=== PATIENT | female | born 1980 | race Caucasian/White ===

== ENCOUNTER 2018-05-09 00:23 | Observation (INO) | payer OTHER, SELFPAY ==
[2018-05-09] VITALS (19 sets, daily range): BP systolic 81–133; BP diastolic 48–76; PULSE 62–104; RESP 12–20; TEMP 36.5–37.2; O2SAT 93–100; BMI 25.0; BMI 25.3
--- NOTE | 2018-05-09 | APP_PTH ---
PATIENT: CLEOPATRA GUTIERREZ LOC: MS3 U#:[id number] AGE/SX: 37/F ROOM: MS312 RE05/09/[address]: Dr. Lokesh Erickson MD : 1980 BED: 1 DIS: 05/09/2018 SPEC #: [id number] RECD: 05/09/18 10:09 STATUS: MIRELLA REJimmy #: [id number] FRANSISCO: 05/09/18 00:[address]: Lokesh Erickson DEPT: SURGICAL PATHOLOGY RECD BY: Roe Hall ENTERED: 05/09/18 10:09 SP TYPE: APPENDIX OTHR DR: MD Dr. Keara Gonzalez MD Tissues: Appendix, NOS Procedures: Surgery Specimen Level III HEADER OPERATION: Laparoscopic appendectomy PRE-OP DIAGNOSIS: Acute appendicitis TISSUE SUBMITTED: Appendix MICROSCOPIC DIAGNOSIS Appendix: Acute appendicitis and periappendicitis. SJ:maría 05/13/18 MICROSCOPIC DESCRIPTION Slides are reviewed. GROSS DESCRIPTION Received is one container labeled with the patient's name and designated appendix. The specimen consists of a vermiform appendix measuring 7 cm in length and 1 cm in average diameter. Sections reveal a patent lumen. Fur Finisher Seamstress sections are submitted in one cassette. / AM:maría 05/09/18 TC:2 [facility]: [id number]
[2018-05-09 00:58] LABS: Bacteria 0 SEEN /hpf (None Seen); Red Blood Cells-Urine 0 SEEN /hpf (0-5); White Blood Cells 0 SEEN /hpf (0-5)
[2018-05-09] MEDS: 0.9% Normal Saline 1,000 ML 125 ML IV (00:58)
[2018-05-09 00:59] LABS: Color, Urine Yellow (Yellow); Glucose, Dipstick Normal (Normal); Leukocyte Esterase-Dipstick Negative /ul (Negative); Nitrite-Dipstick Negative (Negative); Occult Blood-Urine Negative /ul (Negative); Protein-Dipstick 15 mg/dl (Negative); Specific Gravity, Urine 1.025 (1.002-1.030); Urine Bilirubin Dipstick Negative (Negative); Urine Clarity Clear (Clear); Urine Urobilinogen Normal (Normal)
[2018-05-09] MEDS: Morphine 4 MG/ML Syringe IV (01:00)
[2018-05-09] MEDS: Ondansetron 4 MG/2 ML Vial IV ×2 (01:01→08:40)
[2018-05-09 01:03] LABS: Internal QC Validated? YES +Cl - CLEAR BKGD; Pregnancy, Urine Negative Negative
[2018-05-09 01:07] LABS: Ketone-Dipstick 150 mg/dl (Negative)
[2018-05-09 01:08] LABS: Mucous, Urine RARE /hpf (<or=2+); Squamous Epithelial Cells - UA 0-5 SEEN /hpf (5-10)
[2018-05-09 01:08] LABS: Absolute Lymphocyte Count 1.78 X10^3/ul (0.83-4.51); Absolute Neutrophil Count 10.4 X10^3/uL (2.0-7.7); Basophil# 0.02 X10^3/uL; Basophil% 0.1 % (0-1); Eosinophil# 0.16 X10^3/uL; Eosinophils% 1.2 % (0-5); Hematocrit 42.1 % (37-47); Hemoglobin 14.2 g/dl (12.0-15.0); Lymphocyte # 1.78 X10^3/ul (4.0); Lymphocyte % 13.3 % (19-41); Mean Corp Hgb Conc 33.7 g/gl (32-36); Mean Corpuscular Hgb 29.7 pg (27.0-32.0); Mean Corpuscular Volume 88.1 fL (81-99); Mean Platelet Vol. 9.2 fl (6.2-12.0); Monocyte# 0.99 X10^3/uL; Monocyte% 7.4 % (0-10); Neutrophil # 10.41 X10^3/uL (2.7-7.7); Neutrophil % 77.9 % (47-70); Platelet Count 251 K/mm3 (150-450); RBC Distribution Width CV 13.3 % (11.6-14.6); RBC Distribution Width SD 42.8 fl (35.1-43.9); Red Blood Count 4.78 M/mm3 (4.2-5.4); White Blood Count 13.4 K/mm3 (4.4-11.0)
[2018-05-09 01:10] LABS: POSITIVE COUNT NO; POSITIVE DIFFERENTIAL NO; POSITIVE MORPHOLOGY NO
[2018-05-09 01:17] LABS: Prothrombin Time (Protime)PT. 12.8 SECONDS (11.7-14.9)
[2018-05-09 01:18] LABS: Partial Thromboplast Time 29.5 Seconds (24.1-36.2)
[2018-05-09 01:23] LABS: ALB/GLOB Ratio 1.2 RATIO (0.9-2.4); AST(SGOT) 19 U/L (15-37); Alanine Aminotransfer ALT/SGPT 33 U/L (13-56); Albumin, Serum 3.7 g/dL (3.2-5.0); Alkaline Phosphatase 53 U/L (45-117); Anion Gap 11 (5-15); BUN 14 mg/dL (7-18); BUN/Creat Ratio 17.7 RATIO (10-20); Calcium,Total 8.2 mg/dL (8.5-10.1); Chloride 105 mmol/L (98-107); Creatinine, Serum 0.79 mg/dL (0.55-1.02); EST Glomerular Filtration Rate 88 mL/min (>60); Est Glom Filt Rate - Afr Amer 106 mL/min (>60); Estimated Creatinine Clearance 89.44 ml/min; Globulin 3.2 g/dL (2.2-4.2); Glucose 82 mg/dL (74-106); Lipase 129 U/L (73-393); Potassium 3.2 mmol/L (3.5-5.1); Protein, Total 6.9 g/dL (6.4-8.2); Sodium Level 139 mmol/L (136-145)
--- NOTE | 2018-05-09 03:17 | ED.VISSUMM ---
- ER Visit Summary Date of Service: 05/09/18 Chief Complaint: Abdominal pain History of Present Illness: The patient is a 37 F 2 day history waxing waning abdominal pain. Patient states pain is diffuse, intermittent sharpness. This evening at midnight symptoms got more severe. Severe chills on the way in here. Last menstrual period a week ago. Pain is 7 out of 10. No previous similar symptoms no abdominal surgeries. History of reflux on omeprazole, also takes vitamins. Last meal was at 5 PM yesterday. Physical Examination: General: Alert and oriented ?3, moderate distress HEENT: Normocephalic, atraumatic. Moist mucosa membranes Neck: supple, nontender. Cardiovascular: Regular rate and rhythm, no murmurs Respiratory: Normal breath sounds, symmetric, no distress Abdomen: Soft, mild generalized tenderness however most pain over right lower quadrant with mild guarding there. There is no rebound. Extremities: Nontender, no edema, pulses intact ?4 Neuro: no focal neurological deficits. Test Results: White count 13.4. Creatinine 0.79. Lipase normal. UA no ketones. HCG negative. CT scan discussion with radiologist notes acute appendicitis on report no possible microperforation with free fluid in the pelvis. Emergency Department Course and Treatment: Patient workup for appendicitis due to her symptoms. Kept n.p.o., fluid started. Morphine Zofran. Labs no white count 13.4. She did have a scan noting concerns for acute appendicitis possible microperforation due to free fluid. Discussed with on-call surgeon Dr. Erickson who will evaluate for surgery and admission Treatment Plan: [] Disposition: Admission Impression: 1. Acute appendicitis 2. Abdominal pain This note was generated with [email or web address] dictation software. It may contain incorrect words, spelling, and punctuation that were not noted in review of the chart prior to signing ED Disposition - Plan for ED Patient: Disposition: Acute Care [facility] Chief Complaint: Abd Pain Diagnosis: Acute appendicitis, Abdominal pain Referrals: Keara Flores MD [Primary Care Provider] -
--- NOTE | 2018-05-09 03:20 | ED.DCSUM_ITS ---
- ER Visit Summary Date of Service: 05/09/18 Chief Complaint: Abdominal pain History of Present Illness: The patient is a 37 F 2 day history waxing waning abdominal pain. Patient states pain is diffuse, intermittent sharpness. This evening at midnight symptoms got more severe. Severe chills on the way in here. Last menstrual period a week ago. Pain is 7 out of 10. No previous similar symptoms no abdominal surgeries. History of reflux on omeprazole, also takes vitamins. Last meal was at 5 PM yesterday. Physical Examination: General: Alert and oriented ?3, moderate distress HEENT: Normocephalic, atraumatic. Moist mucosa membranes Neck: supple, nontender. Cardiovascular: Regular rate and rhythm, no murmurs Respiratory: Normal breath sounds, symmetric, no distress Abdomen: Soft, mild generalized tenderness however most pain over right lower quadrant with mild guarding there. There is no rebound. Extremities: Nontender, no edema, pulses intact ?4 Neuro: no focal neurological deficits. Test Results: White count 13.4. Creatinine 0.79. Lipase normal. UA no ketones. HCG negative. CT scan discussion with radiologist notes acute appendicitis on report no possible microperforation with free fluid in the pelvis. Emergency Department Course and Treatment: Patient workup for appendicitis due to her symptoms. Kept n.p.o., fluid started. Morphine Zofran. Labs no white count 13.4. She did have a scan noting concerns for acute appendicitis possible microperforation due to free fluid. Discussed with on-call surgeon Dr. Erickson who will evaluate for surgery and admission Treatment Plan: [] Disposition: Admission Impression: 1. Acute appendicitis 2. Abdominal pain This note was generated with [employer] dictation software. It may contain incorrect words, spelling, and punctuation that were not noted in review of the chart prior to signing ED Disposition - Plan for ED Patient: Disposition: Acute Care Hospital [facility] Chief Complaint: Abd Pain Diagnosis: Acute appendicitis, Abdominal pain Referrals: Keara Flores MD [Primary Care Provider] -
[2018-05-09] MEDS: fentaNYL 100 MCG/2 ML Ampul 50 MCG IV (03:39)
--- NOTE | 2018-05-09 05:10 | PCM.HP.STD ---
Problem List (1) Acute appendicitis Status: Acute Qualifiers: Acute appendicitis type: with localized peritonitis Qualified Code(s): K35.3 - Acute appendicitis with localized peritonitis History of Present Illness Date of Admission: 05/09/18 The patient is a 37 year old F who has acute appendicitis.Patient states pain is diffuse, intermittent sharpness. This evening at midnight symptoms got more severe. Severe chills on the way in here. Last menstrual period a week ago. Pain is 7 out of 10. No previous similar symptoms no abdominal surgeries. History of reflux on omeprazole, also takes vitamins. Last meal was at 5 PM yesterday. CAT scan was obtained. Findings: MPRESSION: 1. CT findings suggest sequela of acute appendicitis. There may be a microperforation with a moderate amount of pelvic fluid. Abscess cannot be excluded. 2. Periportal edema suggests either sequela of hepatitis or overhydration. 3. Bilateral basilar dependent atelectasis versus early airspace disease. My plan is to take the patient to surgery and perform a laparoscopic appendectomy on her. Past Medical History Allergies No Known Allergies Allergy (Verified 05/09/18 00:27) Home Medications: Ambulatory Orders Medication Instructions Recorded Acyclovir 1,000 mg PO BID PRN 05/09/18 Surgical History: tonsillectomy, - - Breast augmentation Smoking Status: Former smoker - *Family History Paternal History Items: - - History of kidney stones history of incisional hernia repair Review of Systems Constitutional: Reports: Anorexia, Chills. Denies: Fever Cardiovascular: Denies: Chest Pain, Chest Pressure, Chest Tightness, Palpitations Respiratory: Denies: Cough, Hemoptysis, Shortness of breath at rest, Shortness of breath upon exertion, Wheezing Gastrointestinal: Reports: Abdominal Pain. Denies: Diarrhea, Nausea, Vomiting Genitourinary: Denies: Dysuria, Frequency, Hematuria, Urgency Neurological: Denies: Change in Speech, Confusion, Numbness, Tingling, Seizures Psychiatric: Denies: Anxiety, Depression Endocrine: Denies: Heat/ Cold Intolerance, Polydipsia, Polyuria VTE Information - Inpt Only VTE Present on Admission: No VTE Mechan Device Prophylaxis: SCD's VTE Pharm Prophylaxis ordered?: No Reason prophylaxis not ordered:: Treatment Not Indicated Patient Problems: Active and Suspected Problems Acute appendicitis (Acute) Abdominal pain (Acute) - Physical Exam General: Alert, Oriented x3 HEENT: Atraumatic, PERRLA, EOMI, Normocephalic Oral: Moist Mucosa Neck: Supple, No JVD Lungs: Clear to auscultation Cardiovascular: Regular rate, Regular Rhythm, No murmurs Abdomen: Soft, Guarding, Rebound Tenderness, Tender - Most tenderness is in the right lower quadrant positive Rovsing sign positive rebound Extremities: No clubbing, No cyanosis, No edema Skin: No rashes, No breakdown Neurological: Cranial nerves II-XII grossly intact Psych/Mental Status: Normal Affect, Appropriate Vital Signs Temp Pulse Resp BP Pulse Ox 98.5 F 73 19 H 133/66 H 100 05/09/18 05:03 05/09/18 05:03 05/09/18 05:03 05/09/18 05:03 05/09/18 05:03 Oxygen Delivery Method Room Air Weight: 150 lb Body Mass Index (BMI) 25.0 Laboratory Tests Past 24 Hrs 05/09/18 05/09/18 05/09/18 00:52 00:52 00:55 WBC 13.4 H RBC 4.78 Hgb 14.2 Hct 42.1 MCV 88.1 MCH 29.7 MCHC 33.7 RDW 13.3 RDW Differential 42.8 Plt Count 251 MPV 9.2 Immature Gran % (Auto) 0.100 Neut % (Auto) 77.9 H Lymph % (Auto) 13.3 L [place] % (Auto) 7.4 Eos % (Auto) 1.2 Baso % (Auto) 0.1 Absolute Neuts (auto) 10.4 H Absolute Lymphs (auto) 1.78 Total Counted Not Reportable PT INR APTT Sodium Potassium Chloride Carbon Dioxide Anion Gap BUN Creatinine Estim Creat Clear Calc Est GFR (MDRD) Af Amer Est GFR (MDRD) Non-Af BUN/Creatinine Ratio Glucose Calcium Total Bilirubin AST ALT Alkaline Phosphatase Total Protein Albumin Globulin Albumin/Globulin Ratio Lipase Urine Color Yellow Urine Clarity Clear Urine pH 5.0 Ur Specific [place] 1.025 Urine Protein 15 H Urine Glucose (UA) Normal Urine Ketones 150 H Urine Occult Blood Negative Urine Nitrite Negative Urine Bilirubin Negative Urine Urobilinogen Normal Ur Leukocyte Esterase Negative Urine RBC 0 SEEN Urine WBC 0 SEEN Ur Squamous Epith Cells 0-5 SEEN Urine Bacteria 0 SEEN Urine Mucus RARE Urine Test Negative Blood Type Antibody Screen 08/05/09/18 05/09/18 00:55 00:55 03:30 WBC RBC Hgb Hct MCV MCH MCHC RDW RDW Differential Plt Count MPV Immature Gran % (Auto) Neut % (Auto) Lymph % (Auto) [place] % (Auto) Eos % (Auto) Baso % (Auto) Absolute Neuts (auto) Absolute Lymphs (auto) Total Counted PT 12.8 INR 1.0 APTT 29.5 Sodium 139 Potassium 3.2 L Chloride 105 Carbon Dioxide 23.0 Anion Gap 11 BUN 14 Creatinine 0.79 Estim Creat Clear Calc 89.44 Est GFR (MDRD) Af Amer 106 Est GFR (MDRD) Non-Af 88 BUN/Creatinine Ratio 17.7 Glucose 82 Calcium 8.2 L Total Bilirubin 0.40 AST 19 ALT 33 Alkaline Phosphatase 53 Total Protein 6.9 Albumin 3.7 Globulin 3.2 Albumin/Globulin Ratio 1.2 Lipase 129 Urine Color Urine Clarity Urine pH Ur Specific [place] Urine Protein Urine Glucose (UA) Urine Ketones Urine Occult Blood Urine Nitrite Urine Bilirubin Urine Urobilinogen Ur Leukocyte Esterase Urine RBC Urine WBC Ur Squamous Epith Cells Urine Bacteria Urine Mucus Urine Test Blood Type Pending Antibody Screen Pending Assessment/Plan All Active Problems Acute appendicitis (Acute) Abdominal pain (Acute) Plan is to perform a laparoscopic appendectomy. Risks benefits to include bleeding infection possible injury to surrounding structures possible needing to leave a drain in were all discussed with the patient all questions asked were answered. She agrees to proceed.
--- NOTE | 2018-05-09 05:50 | NURSING ---
report called to ac
--- NOTE | 2018-05-09 06:15 | PCM.OPRPT ---
Problem List (1) Acute appendicitis Status: Acute Qualifiers: Acute appendicitis type: with localized peritonitis Qualified Code(s): K35.3 - Acute appendicitis with localized peritonitis Report of Operation Date of Procedure: 05/09/18 Pre-Operative Diagnosis: k35.3 acute appendicitis with localized peritonitis Post-Operative Diagnosis: Same Surgery/Procedure Performed:: Laparoscopic appendectomy Type of Anesthesia:: General Anesthesiologist: Polo Joyce Estimated Blood Loss (mL): < 25 cc - Admit VTE Documentation VTE Present on Admission: No VTE Mechan Device Prophylaxis: SCD's VTE Pharm Prophylaxis ordered?: No Reason prophylaxis not ordered:: Treatment Not Indicated
[2018-05-09] MEDS: Bupivacaine Mpf 0.5% 30 ML VIAL (06:41)
[2018-05-09] MEDS: Lactated Ringers 1,000 ML 75 ML IV ×2 (07:34→09:08)
[2018-05-09] MEDS: Lactated Ringers 1,000 ML 999 ML IV (09:08)
[2018-05-09] MEDS: Piperacil/Tazobactam 3.375 GM/50 ML ML IV (14:15)
[2018-05-09] MEDS: HYDROcodone Bitartrate/Apap 5/325 Tablet PO (16:17)
== END 2018-05-09 17:45 | disposition home or self-care (01) ==
LOC: ED 03:20 → MS3 05-13 09:17
PROVIDERS: Admitting Provider Surgery; Emergency Provider Emergency Medicine; Family Provider Internal Medicine; PCP Family Medicine; Visit Provider Surgery
PROC: 0DTJ4ZZ Resection of Appendix, Percutaneous Endoscopic Approach (ICD-10-PCS; CPT 44970; principal; 2018-05-09 06:00)
DX: K35.3 Acute appendicitis with localized peritonitis (principal); Z79.899 Other long term (current) drug therapy; Z87.891 Personal history of nicotine dependence; K21.9 Gastro-esophageal reflux disease without esophagitis
CPT/HCPCS: 00840; 44970; 71045; 74177; 80053; 81001; 81025; 83690; 85025; 85610; 85730; 86850; 86900; 88304; 93005; 96361; 96365; 96366; 96375; 96376; 99218; 99282; J7030; J7120; Q9967; A4216; C1760; G0378; J2405

== ENCOUNTER → 2018-10-17 15:01 | Outpatient (CLI) | payer OTHER, SELFPAY ==
[2018-10-17 17:19] LABS: Absolute Lymphocyte Count 2.73 X10^3/ul (0.83-4.51); Absolute Neutrophil Count 4.8 X10^3/uL (2.0-7.7); Basophil# 0.04 X10^3/uL; Basophil% 0.5 % (0-1); Eosinophil# 0.13 X10^3/uL; Eosinophils% 1.5 % (0-5); Hematocrit 41.8 % (37-47); Hemoglobin 13.8 g/dl (12.0-15.0); Lymphocyte # 2.73 X10^3/ul (4.0); Lymphocyte % 31.8 % (19-41); Mean Corpuscular Hgb 30.3 pg (27.0-32.0); Mean Corpuscular Volume 91.9 fL (81-99); Mean Platelet Vol. 10.4 fl (6.2-12.0); Monocyte# 0.84 X10^3/uL; Monocyte% 9.8 % (0-10); Neutrophil # 4.84 X10^3/uL (2.7-7.7); Neutrophil % 56.3 % (47-70); POSITIVE COUNT NO; POSITIVE DIFFERENTIAL NO; POSITIVE MORPHOLOGY NO; Platelet Count 330 K/mm3 (150-450); RBC Distribution Width CV 12.6 % (11.6-14.6); RBC Distribution Width SD 41.4 fl (35.1-43.9); Red Blood Count 4.55 M/mm3 (4.2-5.4); White Blood Count 8.6 K/mm3 (4.4-11.0)
[2018-10-17 17:37] LABS: ALB/GLOB Ratio 1.1 RATIO (0.9-2.4); AST(SGOT) 17 U/L (15-37); Alanine Aminotransfer ALT/SGPT 22 U/L (13-56); Albumin, Serum 3.9 g/dL (3.2-5.0); Alkaline Phosphatase 65 U/L (45-117); Anion Gap 11 (5-15); BUN 16 mg/dL (7-18); BUN/Creat Ratio 18.8 RATIO (10-20); Calcium,Total 8.4 mg/dL (8.5-10.1); Chloride 105 mmol/L (98-107); Creatinine, Serum 0.85 mg/dL (0.55-1.02); EST Glomerular Filtration Rate 80 mL/min (>60); Est Glom Filt Rate - Afr Amer 97 mL/min (>60); Globulin 3.4 g/dL (2.2-4.2); Glucose 75 mg/dL (74-106); Potassium 3.6 mmol/L (3.5-5.1); Protein, Total 7.3 g/dL (6.4-8.2); Sodium Level 142 mmol/L (136-145); Thyroid Stim Hormone (TSH) 1.17 uIU/mL (0.358-3.74)
[2018-10-17 18:57] LABS: Vitamin B12 529 pg/mL (211-911); Vitamin D,25 Hydroxy 16.1 ng/mL (29.95-100.01)
== END ==
PROVIDERS: Family Provider Family Medicine; PCP Family Medicine; Visit Provider Family Medicine
DX: R53.83 Other fatigue (principal); R19.7 Diarrhea, unspecified
CPT/HCPCS: 36415; 80053; 82306; 82607; 84443; 85025

== ENCOUNTER 2019-06-12 06:52 | Emergency (ER) | payer OTHER, SELFPAY ==
[2019-01-29 14:31] VITALS: BMI 26.6
[2019-06-12 06:52] VITALS: BP 116/78; PULSE 59; RESP 14; TEMP 36.6; O2SAT 99; BMI 29.1
--- NOTE | 2019-06-12 07:28 | EKG12_ITS ---
Test Reason : PALPITATIONS Blood Pressure : / mmHG Vent. Rate : 058 BPM Atrial Rate : 058 BPM P-R Int : 138 ms QRS Dur : 070 ms QT Int : 426 ms P-R-T Axes : 006 061 049 degrees QTc Int : 418 ms Sinus bradycardia Otherwise normal ECG Confirmed by LETTY PACE, CONTRERAS ([id number]), digital editor JOSH NORIEGA ([id number]) on 06/16/2019 10:17:47 AM Referred By: ALONA Confirmed By:CONTRERAS SAENZ MD
--- NOTE | 2019-06-12 07:29 | CT_ITS ---
STUDY: CT ABDOMEN AND PELVIS WITH CONTRAST REASON FOR EXAM: Female, 38 years old. Rectal bleeding. RADIATION DOSAGE (If Supplied By Facility): CTDIvol = ( 18.56 ) mGy, DLP = ( 1073.55 ) mGycm TECHNIQUE: Transaxial images were obtained from the dome of the diaphragm to the symphysis pubis with oral contrast. IV/Oral Isovue 300 100ml was administered. Sagittal and coronal images were reconstructed. Individualized dose optimization techniques were used for this CT. COMPARISON: Comparison is made with prior study dated May 09, 2018. FINDINGS: Stable appearance of the right breast prostheses. The visualized lung bases are unremarkable. The visualized portions of the heart are within normal limits. Stable appearance of the mild periportal edema. Normal gallbladder and extrahepatic biliary system. Normal spleen. Normal pancreas. Normal bilateral adrenal glands. Normal right kidney. Normal left kidney. Normal visualized stomach. Normal small intestine. Normal colon. Patient has a history of prior appendectomy. Normal abdominal aorta. Normal inferior vena cava. Normal retroperitoneum. Normal urinary bladder. There is a 2.9 cm x 3 cm septated cyst in the right ovary. Normal abdominal wall. Normal osseous structures. CT/Abdomen/Pelvis WITH Contrast IMPRESSION: Small septated cyst in the right ovary. Electronically Signed: Jayce Arshad, at 10:18 EDT , Service support ,
[2019-06-12 07:37] LABS: Absolute Lymphocyte Count 1.97 X10^3/uL (0.83-4.51); Absolute Neutrophil Count 4.2 X10^3/uL (2.0-7.7); Basophil# 0.07 X10^3/uL; Eosinophil# 0.19 X10^3/uL; Eosinophils% 2.6 % (0-5); Hematocrit 44.3 % (37-47); Hemoglobin 14.4 g/dL (12.0-15.0); Lymphocyte # 1.97 X10^3/ul (4.0); Lymphocyte % 27.1 % (19-41); Mean Corp Hgb Conc 32.5 g/dL (32-36); Mean Corpuscular Hgb 30.3 pg (27.0-32.0); Mean Corpuscular Volume 93.3 fL (81-99); Mean Platelet Vol. 9.3 fl (6.2-12.0); Monocyte# 0.81 X10^3/uL; Monocyte% 11.1 % (0-10); NRBC Flagged by Analyzer 0 % (0-5); Neutrophil # 4.21 X10^3/uL (2.7-7.7); Neutrophil % 57.9 % (47-70); Platelet Count 349 K/mm3 (150-450); RBC Distribution Width CV 11.9 % (11.6-14.6); Red Blood Count 4.75 M/mm3 (4.2-5.4); White Blood Count 7.3 K/mm3 (4.4-11.0)
[2019-06-12 07:41] VITALS: BP 112/80; BP 120/88; BP 121/88; PULSE 62; PULSE 64; PULSE 67
[2019-06-12 07:41] LABS: International Normalized Ratio 1.1; Partial Thromboplast Time 29.6 Seconds (24.1-36.2); Prothrombin Time (Protime)PT. 13.6 SECONDS (11.7-14.9)
[2019-06-12] MEDS: 0.9% Normal Saline 1,000 ML 1000 ML IV (07:42)
[2019-06-12 07:50] LABS: ALB/GLOB Ratio 1.2 RATIO (0.9-2.4); AST(SGOT) 15 U/L (15-37); Alanine Aminotransfer ALT/SGPT 16 U/L (13-56); Albumin, Serum 3.8 g/dL (3.2-5.0); Alkaline Phosphatase 65 U/L (45-117); Anion Gap 4 (5-15); BUN 13 mg/dL (7-18); BUN/Creat Ratio 18.9 RATIO (10-20); Calcium,Total 8.5 mg/dL (8.5-10.1); Chloride 108 mmol/L (98-107); Creatinine, Serum 0.69 mg/dL (0.55-1.02); EST Glomerular Filtration Rate 102 mL/min (>60); Est Glom Filt Rate - Afr Amer 124 mL/min (>60); Estimated Creatinine Clearance 101.43 ml/min; Globulin 3.2 g/dL (2.2-4.2); Glucose 74 mg/dL (74-106); Potassium 4.1 mmol/L (3.5-5.1); Sodium Level 142 mmol/L (136-145)
--- NOTE | 2019-06-12 08:28 | ED.DCSUM_ITS ---
- ER Visit Summary Date of Service: 06/12/19 Chief Complaint: Palpitations History of Present Illness: The patient is a 38 F who presents with palpitations that have been intermittent over the past 2 days. Patient states she feels like her heart is skipping at times. Patient states these episodes last for approximately 20 seconds. Patient denies any chest pain. Patient denies any shortness of breath. Patient denies any nausea or vomiting. Patient denies any diaphoresis. Patient also states she has noted some blood in her stool this morning. Patient states her stools have been loose over the past few days. Patient states she has increased gas after eating. Patient denies any abdominal pain. Patient denies any dysuria or hematuria. She denies any pain with bowel movement. Physical Examination: Vital signs are stable. Patient is afebrile. Patient is in no acute distress. Oral mucosa is pink and moist. Neck is supple. Trachea is midline. There is no JVD noted. Heart was regular rate and rhythm. Lungs are clear and equal bilaterally. Abdomen is soft. Bowel sounds are normal. There is no tenderness. Cranial nerves II through XII are intact. There are no focal motor or sensory deficits noted. Test Results: EKG showed sinus rhythm with a rate of 58. There are no acute ST or T wave changes. There are no PACs or PVCs. DC and comprehensive metabolic profile within normal limits. PT with INR and PTT were normal. Urinalysis does not show any evidence of urinary tract infection. PA and lateral chest x-ray does not show any acute cardiopulmonary process. CT scan of the abdomen pelvis was obtained. There is a right ovarian cyst. There is no acute intra-abdominal abnormality. Emergency Department Course and Treatment: Patient was feeling better on reevaluation. Patient was instructed to follow-up with her primary care physician for further evaluation of her palpitations. Patient was instructed to continue to watch her stools for bleeding. Patient was instructed on signs and symptoms which should prompt return to the emergency department. Patient and her understood and were agreeable with the plan. All questions were answered. Disposition: Discharge home Impression: 1. Palpitations 2. Rectal bleeding This note was generated with Single [employer] software. It may contain incorrect words, spelling, and punctuation that were not noted in review of the chart prior to signing ED Disposition - Plan for ED Patient: Disposition: Home or Assisted Living Diagnosis: Palpitations, Rectal bleeding Instructions: Palpitations, Evaluating and Treating Rectal Bleeding Referrals: Keara Flores MD [Primary Care Provider] - 3-5 Days
[2019-06-12 09:15] VITALS: BP 120/90; PULSE 59; RESP 18; O2SAT 99
[2019-06-12 09:27] LABS: Bacteria 0 SEEN /hpf (None Seen); Mucous, Urine 0 SEEN /hpf (<or=2+); Red Blood Cells-Urine 0 SEEN /hpf (0-5); White Blood Cells 0 SEEN /hpf (0-5)
[2019-06-12 09:29] LABS: Color, Urine Yellow (Yellow); Glucose, Dipstick Normal (Normal); Ketone-Dipstick Negative (Negative); Leukocyte Esterase-Dipstick Negative /ul (Negative); Nitrite-Dipstick Negative (Negative); Occult Blood-Urine Negative /ul (Negative); Protein-Dipstick Negative (Negative); Specific Gravity, Urine 1.005 (1.002-1.030); Urine Bilirubin Dipstick Negative (Negative); Urine Clarity Clear (Clear); Urine Urobilinogen Normal (Normal)
[2019-06-12 09:44] LABS: Squamous Epithelial Cells - UA 0-5 SEEN /hpf (5-10)
--- NOTE | 2019-06-12 09:45 | RAD_ITS ---
STUDY: X-RAY CHEST REASON FOR EXAM: Female, 38 years old. Cough. Palpitations. TECHNIQUE: PA and lateral views of the chest. Comparison is made with prior study dated May 09, 2018. COMPARISON: Comparison is made with prior study dated May 09, 2018. FINDINGS: EKG electrodes are seen. The lungs are clear and expanded. There is no demonstrated pleural abnormality. Normal size heart. Normal mediastinum and essence. Normal visualized pulmonary arteries. Normal visualized aortic arch and descending thoracic aorta. Normal visualized thoracic spine. Normal visualized ribs, clavicles, and shoulders. There is no demonstrated abnormality of the visualized soft tissue structures of the upper abdomen. RAD/Chest PA and Lateral IMPRESSION: Normal x-ray examination of the chest. Electronically Signed: Jayce Arshad, at 10:20 EDT , Service support ,
[2019-06-12 11:00] VITALS: BP 121/79; PULSE 64; RESP 18; O2SAT 99
== END 2019-06-12 11:01 | disposition home or self-care (01) ==
PROVIDERS: Emergency Provider Emergency Medicine; Family Provider Family Medicine; PCP Family Medicine
DX: R00.2 Palpitations (principal); K62.5 Hemorrhage of anus and rectum; N83.201 Unspecified ovarian cyst, right side; Z87.891 Personal history of nicotine dependence
CPT/HCPCS: 71046; 74177; 80053; 81001; 85025; 85610; 85730; 93005; 96360; 99285; J7030; Q9967; A4216

== ENCOUNTER 2019-07-13 09:13 | Day surgery (SDC) | payer OTHER, SELFPAY ==
--- NOTE | 2019-06-24 03:14 | HP_ITS ---
Intake Vital Signs 06/24/19 Body Mass Index (BMI) 29.1 06/24/19 Height 5 ft 5 in 06/24/19 Weight: 170 lb 06/24/19 Body Mass Index (BMI) 28.3 06/24/19 Blood Pressure 113/77 06/24/19 Blood Pressure Location Rt brachial 06/24/19 Respiratory Rate 16 06/24/19 Pulse Rate 73 06/24/19 Pulse Source Monitor 06/24/19 Temperature 98.5 F 06/24/19 Pulse Ox 98 06/24/19 Oxygen Delivery Method room air Intake Visit Reasons: Rectal Bleeding/Change in Stool Horse Doctor Required: No Is patient in pain?: No Allergies omeprazole Allergy (Unknown, Verified 06/24/19 14:59) Unknown Medications acyclovir 400 mg tablet 400 mg PO BID PRN 06/24/19 [History Confirmed 06/24/19] acyclovir 5 % topical cream 1 applic TOPICAL ONCE PRN 06/24/19 [History Confirmed 06/24/19] diazepam 5 mg tablet 5 mg PO DAILY PRN #20 tab 06/24/19 [History Confirmed 06/24/19] ranitidine 150 mg tablet PO #60 tab 06/24/19 [History] valacyclovir 1 gram tablet 1,000 mg PO DAILY PRN #20 tab 06/24/19 [History Confirmed 06/24/19] PFSH Medical History Blood in stool (Acute) Diarrhea (Acute) Anal fissure (Acute) Anxiety (Acute) Laceration of right thumb (Acute) Acute appendicitis (Acute) Abdominal pain (Acute) Surgical History Hx of breast augmentation (Acute) Hx of tonsillectomy (Acute) Hx of appendectomy (Acute) Family History Mother No problems noted. Social History (Updated 06/24/19 @ 15:14 by Kathy Zazueta MD) Smoking Status: Former smoker second hand exposure: No alcohol intake: current alcohol intake frequency: holidays/special occasions only substance use type: does not use caffeine: Yes what type of physical activity do you participate in: none frequency: does not exercise HPI HPI HPI: CLEOPATRA GUTIERREZ, is a 38 F who presents to the office today for HPI HPI Surgical H&P: Yes HPI: CLEOPATRA GUTIERREZ, is a 38 F who presents to the office today for change of stool caliber and habits. Patient states over the last 8 months she has had mostly non-formed stool can range from liquid to thin pieces of stool. Patient states she now also goes 3 times a day to the restroom prior to this she usually only had a bowel movement once every 3 weeks. Patient has noticed blood in her stool twice once was on 06/12 and then 06/16. Patient states to between bright red and maroon stool but difficult to see because of the stool but does change the water to read again only a smaller amount. Patient also notices some small amount of bright red blood on the toilet paper due to her anal fissure. Patient states that her bowel movements have been soft and she has not needed any stool softeners. She thinks the fissure started about 4 to 6 months ago she rates her pain at 3?410 which has stayed the same when she has bowel movement. Patient states recently she is also had a lot more gas. Patient denies really any change of diet with this change of bowel function. Patient is adopted unsure about any family history. Patient has never had a colonoscopy. Exam Const General: cooperative, comfortable, no acute distress Resp Effort & Inspection: normal respiratory effort Cardio Rate: regular rate GI Inspection: non-distended Palpation: soft, no guarding, nontender Other: DREW: Anal fissure at 6:00, no other masses or obvious hemorrhoids noted on exam, no gross blood Assessment & Plan Problems 1. Change in stool caliber R19.5 2. Blood in stool K92.1 3. Anal fissure K60.2 Plan We will give the patient diltiazem/lidocaine ointment to use 2-3 times daily for the anal fissure also recommended sitz bath's. I have discussed the above with the patient. I have offered the patient colonoscopy for evaluation. I have explained the risks/benefits of the procedure and described the procedure. I have discussed the risks with the patient, including but not limited to: infection, bleeding, perforation of the GI tract requiring emergency surgery, inability to complete the procedure, injury to any internal organs, complications of anesthesia, etc. - the patient understands and agrees to proceed. I have answered all the patient's questions to the patient's satisfaction and the patient has no further questions. The patient has been given instructions for the colon cleansing preparation. One day of clears, MiraLAX Dulcolax split prep. Kathy Zazueta M.D. Pager: [phone] [facility] [address] [place] [address], [facility], [address] [place] [address] Office: [phone] Medications New: diazepam 5 mg PO DAILY PRN ranitidine PO valacyclovir 1,000 mg PO DAILY PRN acyclovir 400 mg PO BID PRN acyclovir 5% (Zovirax) 1 applic topical ONCE PRN Plan Detail Follow Up We will schedule colonoscopy Coding Level of Care Code Off vis,est,level 3 Diagnoses Change in stool caliber R19.5 Blood in stool K92.1 Anal fissure K60.2 06/24/19 [id number] <Electronically signed by Kathy Umanzor am, MD> Date _ Kathy Zazueta MD I have examined the patient the following changes are noted: Patient denies any more blood per rectum however is still having pain with bowel movements patient has been using the diltiazem/lidocaine cream however she has not been doing sitz bath. Did encourage patient to do the sitz bath's a couple times a day. Patient states her bowel movements are still no change in caliber depends on the day.
[2019-06-24 14:55] VITALS: BMI 29.1
[2019-07-13] VITALS (7 sets, daily range): BP systolic 95–114; BP diastolic 55–76; PULSE 66–82; RESP 16; TEMP 36.3–36.9; O2SAT 99–100
[2019-07-13] MEDS: Lactated Ringers 1,000 ML 100 ML IV (10:14)
--- NOTE | 2019-07-13 10:30 | COLBX_PTH ---
PATIENT: CLEOPATRA GUTIERREZ LOC: EN U#:[id number] AGE/SX: 38/F ROOM: RE07/13/[address]: Dr. Kathy Zazueta MD : 1980 BED: DIS: 07/13/2019 SPEC #: [id number] RECD: 07/13/19 11:24 STATUS: MIRELLA KENNETH #: [id number] FRANSISCO: 07/13/19 10:[address]: Kathy Zazueta DEPT: SURGICAL PATHOLOGY RECD BY: [place] ENTERED: 07/13/19 11:26 SP TYPE: COLON BX OTHR DR: Dr. Keara Flores MD Tissues: Descending colon Procedures: Surgery Specimen Level IV HEADER OPERATION: Colonoscopy (MAC) PRE-OP DIAGNOSIS: Rectal bleed, change in stool TISSUE SUBMITTED: Biopsy of descending colon polyp MICROSCOPIC DIAGNOSIS Descending colon polyp, biopsy: Fragments of colonic mucosa with minimal hyperplastic changes. SJ:maría 07/14/19 MICROSCOPIC DESCRIPTION Slides are reviewed. GROSS DESCRIPTION Received in fixative is one container labeled with the patient's name and designated biopsy of descending colon polyp. The specimen consists of two irregular fragments of light choi soft tissue that in aggregate measure 0.4 x 0.2 x 0.1 cm. The specimen is totally submitted in one cassette. / ROMELIA:maría 07/13/19 TC:5 CPT: 93458
[2019-07-13 10:43] LABS: Internal QC Validated? YES +Cl - CLEAR BKGD; Pregnancy, Serum, hCG Quali. NEGATIVE Negative
--- NOTE | 2019-07-13 11:13 | OP.ENDO_ITS ---
07/13/2019 Keara Flores [place] [id number] [place] [address] Re : Colonoscopy procedure for Jennifer Bagley Dear Dr. Flores This procedure was performed on Saturday, July 13, 2019. My impressions and recommendations are as follows: Impressions : - Hemorrhoids found on perianal exam. - Anal fissure found on perianal exam. - One less than 5 mm polyp in the descending colon, removed with a cold biopsy forceps. Resected and retrieved. - The examination was otherwise normal. Recommendations : - Discharge patient to home. - Resume previous diet. - Continue present medications. - Await pathology results. - Repeat colonoscopy in 5-10 years for surveillance based on pathology results. My findings are described in the full procedure note, which is enclosed. If I can be of further assistance, please feel free to contact me at Doctor phone number(s): , Work: . Sincerely, MD Kathy Vaca MD 07/13/2019 11:13:02 AM This report has been signed electronically.
== END 2019-07-13 11:51 | disposition home or self-care (01) ==
LOC: EN 09:13 → AC 09:32
PROVIDERS: Anesthesiology; Family Provider Family Medicine; PCP Family Medicine; Referring Provider Family Medicine; Visit Provider Surgery
PROC: 0DJD8ZZ Inspection of Lower Intestinal Tract, Via Natural or Artificial Opening Endoscopic (ICD-10-PCS; CPT 45378; principal; 2019-07-13 10:25)
DX: K62.5 Hemorrhage of anus and rectum (principal); K60.2 Anal fissure, unspecified; D12.4 Benign neoplasm of descending colon; K64.9 Unspecified hemorrhoids; Z87.891 Personal history of nicotine dependence; F41.9 Anxiety disorder, unspecified
CPT/HCPCS: 45380; 84703; 88305; J7120; J2405

== ENCOUNTER → 2020-04-05 09:28 | Outpatient (CLI) | payer OTHER, SELFPAY | PROVIDERS: PCP Family Medicine; Referring Provider Family Medicine; Visit Provider Family Medicine | DX: Z20.828 Contact with and (suspected) exposure to other viral communicable diseases (principal) | CPT/HCPCS: 87635; 94799; U0003 ==

== ENCOUNTER → 2023-03-18 | Outpatient (CLI) | payer OTHER, SELFPAY | END | disposition home or self-care (01) | LOC: LABSPEC 10:26 | PROVIDERS: PCP Family Medicine; Referring Provider Family Medicine; Visit Provider Family Medicine | DX: N39.0 Urinary tract infection, site not specified (principal) | CPT/HCPCS: 87086; 87088; 87186 ==

== ENCOUNTER → 2023-09-17 | Outpatient (CLI) | payer OTHER, SELFPAY ==
--- NOTE | 2023-09-17 14:22 | RAD_ITS ---
INDICATION: Left lower quadrant pain EXAMINATION/TECHNIQUE: X-RAY - XR Abdomen 1 View COMPARISON: No relevant prior comparison study available FINDINGS: BOWEL GAS PATTERN: Non-obstructive. No bowel or stomach distention. FREE AIR: Not assessed on a single supine view. ORGANOMEGALY: Not seen. CALCIFICATIONS: Few pelvic calcifications likely due to phleboliths. LOWER CHEST: No acute pathology. BONES AND SOFT TISSUES: No acute pathology. RAD/Abdomen Single View IMPRESSION: Non-obstructive bowel gas pattern. Electronically Signed: Balaji Hamilton MD at 14:41 EST ,
[2023-09-17 15:22] LABS: Erythrocyte Sedimentation Rate < 1 mm/hr (0-30)
--- OUTSIDE RECORDS SUMMARY | 2023-09-17 15:22 | XMS RPT_ITS | CCD ---
Author Name Unknown Address [address] [place] [address] Organization [facility] Care Team Providers Care Professor Of [employer] Name Role Phone TANIA CARREON) Unavailable Unav ailable Problems Problem Classification Problem Date Documented Da te Episodic/Chronic Unclassified (1 source) Unknown / UNK(Unknown) Onset: 08-13-2017 Results Test Name Value Interpretation Reference Range Facil ity Encounters Encounter Date Encounter Type Care Provider Facility Start: 08-13-2017 End: 08-16-2017 Ambulatory TANIA RODRIGUEZ) VELMA De La Cruz [facility] Summary Purpose Family History No Family History Records Found Advance Directives No Advanced Directives Records Found Additional Source Comments INFORMATION SOURCE (unrecogn ized section and content) FOR RECORDS PERTAINING TO PATIENTS WHO ARE OR HAVE BEEN ENROLLED IN A CHEMICAL DEPENDENCY/SUBSTANCEABUSE PROGRAM, SOME INFORMATION MAY BE OMITTED. This clinical summary was aggregated from multiple sources. Caution should be exercised in using it in the provision of clinical care. This summary normalizes information from multiple sources, and as a consequence, information in this document may materially change the coding, format and clinical context of patient data. In addition, data may be omitted in some cases. CLINICAL DECISIONS SHOULD BE BASED ON THE PRIMARY CLINICAL RECORDS. [employer] provides no warranty or guarantee of the accuracy or completeness of information in this document.
[2023-09-17 15:25] LABS: Absolute Lymphocyte Count 2.05 X10^3/uL (0.83-4.51); Absolute Neutrophil Count 5.3 X10^3/uL (2.0-7.7); Basophil# 0.06 X10^3/uL; Basophil% 0.7 % (0-1); Eosinophil# 0.01 X10^3/uL; Eosinophils% 0.1 % (0-5); Hematocrit 40.9 % (37-47); Hemoglobin 14.2 g/dL (12.0-15.0); Lymphocyte # 2.05 X10^3/ul (0.83-4.51); Lymphocyte % 24.7 % (19-41); Mean Corp Hgb Conc 34.7 g/dL (32-36); Mean Corpuscular Hgb 31.1 pg (27.0-32.0); Mean Corpuscular Volume 89.7 fL (81-99); Monocyte# 0.86 X10^3/uL; Monocyte% 10.3 % (0-10); NRBC Flagged by Analyzer 0 % (0-5); Neutrophil # 5.31 X10^3/uL (2.7-7.7); Platelet Count 424 K/mm3 (150-450); RBC Distribution Width CV 12.1 % (11.6-14.6); RBC Distribution Width SD 39.8 fl (35.1-43.9); Red Blood Count 4.56 M/mm3 (4.2-5.4); White Blood Count 8.3 K/mm3 (4.4-11.0)
[2023-09-17 15:37] LABS: CRP < 2.90 mg/L (0.0-3.0)
== END | disposition home or self-care (01) ==
LOC: BFHLAB 13:36
PROVIDERS: PCP Nurse Practitioner Family; Visit Provider Nurse Practitioner Family
DX: R10.32 Left lower quadrant pain (principal)
CPT/HCPCS: 36415; 74018; 85025; 85652; 86140

== ENCOUNTER → 2024-01-31 | Outpatient (CLI) | payer OTHER, SELFPAY | END | disposition home or self-care (01) | LOC: BFHLAB 16:15 | PROVIDERS: PCP Nurse Practitioner Family; Referring Provider Nurse Practitioner Family; Visit Provider Nurse Practitioner Family | DX: N39.0 Urinary tract infection, site not specified (principal) | CPT/HCPCS: 87077; 87086; 87088; 87186 ==

== ENCOUNTER → 2024-02-13 | Outpatient (CLI) | payer OTHER, SELFPAY ==
[2024-02-19 14:10] LABS: HPV APTIMA, High Risk Negative (Negative)
== END | disposition home or self-care (01) ==
PROVIDERS: PCP Nurse Practitioner Family; Referring Provider Nurse Practitioner Family; Visit Provider Nurse Practitioner Family
DX: Z12.4 Encounter for screening for malignant neoplasm of cervix (principal)
CPT/HCPCS: 87624; 88175; G0145

== ENCOUNTER → 2024-12-24 | Outpatient (CLI) | payer OTHER, SELFPAY | END | disposition home or self-care (01) | LOC: LABSPEC 14:35 | PROVIDERS: PCP Family Medicine; Visit Provider Family Medicine | DX: R30.0 Dysuria (principal) | CPT/HCPCS: 87086; 87088; 87186 ==

== ENCOUNTER → 2025-01-18 | Outpatient (CLI) | payer OTHER, SELFPAY ==
--- NOTE | 2025-01-18 13:55 | BI_ITS ---
EXAM: DIAG MAMM W/CAD, BILAT 01/18/2025 CLINICAL HISTORY: F, Age 44 y/o , RIGHT BREAST MASS palpable mass. Evaluate. Patient has bilateral breast implants. TECHNIQUE: Bilateral Diagnostic digital breast tomosynthesis with 2D and 3D images. Computer aided detection. COMPARISON: Images. Prior exam(s) dated none. FINDINGS: TISSUE DENSITY: The breast tissue is extremely dense which lowers the sensitivity of mammography. Bilateral Breast Mammographic Findings: A radiopaque marker is placed over the right breast palpable abnormality. There is a 1 cm partially obscured isodense mass seen in this location. It is best appreciated on the marion images. Further workup with ultrasound will be performed. There is a 2.5 cm partially obscured isodense mass in the retroareolar region, slightly medial aspect of the right breast. Further workup with ultrasound will be performed. There is a 2 cm partially obscured masslike density seen in the superior outer aspect of the right breast. This is best appreciated on the marion images. Further workup with ultrasound will be performed. No suspicious masses, suspicious clustered microcalcifications, architectural distortion or secondary signs of malignancy is identified in the left breast. Both breast implants appear to be intact. BI/DIAG MAMM W/CAD, BILAT IMPRESSION: OVERALL FINAL ASSESSMENT: BIRADS 0 Incomplete: Need additional imaging evaluati on and/or prior mammograms for comparison.. RECOMMENDATION: Ultrasound. A letter with findings and recommendations will be mailed to the patient. Reading Location: [id number]
--- NOTE | 2025-01-18 13:55 | US_ITS ---
PROCEDURE: BREAST LIMITED UNILATERAL 01/18/2025 REASON FOR EXAM: RIGHT BREAST MASS Palpable mass right breast. Inconclusive mammogram shows 3 masses in the right breast. 1 of which does correlate to the palpable abnormality. Further workup with ultrasound will be performed. TECHNIQUE: Targeted left breast ultrasound. COMPARISON: Mammogram dated 01/18/2025 FINDINGS: Left breast ultrasound was targeted to the masses seen on the mammogram study as well as the palpable abnormality.. There is a benign-appearing cyst identified in the retroareolar region of the right breast correlating to a mass on the mammogram. This cyst is located at the retroareolar region measuring 2.4 x 2.3 x 1.5 cm. Aspiration is recommended. There are 2 solid hypoechoic lobulated masses seen in the right breast. These do correlate to masses seen on the mammogram. 1 of which does correlate to the palpable abnormality. The masses do have blood flow. The masses do not appear to be highly worrisome for malignancy however malignancy can not be entirely excluded. Biopsy of both masses is warranted. US/Breast Limited Unilateral IMPRESSION: Impression: The 2 solid masses in the right breast warrant biopsy in order to c ompletely exclude a malignancy. The cyst should be aspirated. Birads: BI-RADS 4: SUSPICIOUS ABNORMALITY. Reading Location: [id number]
== END | disposition home or self-care (01) ==
LOC: OPBI 13:53
PROVIDERS: PCP Family Medicine; Referring Provider Nurse Practitioner Women's Health; Visit Provider Nurse Practitioner Women's Health
DX: N63.10 Unspecified lump in the right breast, unspecified quadrant (principal)
CPT/HCPCS: 76642; 77062; 77066; G0279

== ENCOUNTER 2025-01-22 21:19 | Outpatient (CLI) | payer OTHER, SELFPAY ==
--- NOTE | 2025-01-22 15:00 | BRBX_PTH ---
PATIENT: CLEOPATRA GUTIERREZ LOC: [facility] U#:[id number] AGE/SX: 44/F ROOM: RE01/22/[address]: Dr. Kathy Zazueta MD : 1980 BED: DIS: 01/22/2025 SPEC #: [id number] RECD: 01/22/25 16:00 STATUS: MIRELLA KENNETH #: [id number] FRANSISCO: 01/22/25 15:[address]: Kathy Zazueta DEPT: SURGICAL PATHOLOGY RECD BY: Kathy Jasso ENTERED: 01/25/25 07:24 SP TYPE: BREAST BX OTHR DR: Dr. Keara Flores MD Tissues: A - Right breast, NOS B - Right breast, NOS Procedures: Immunohistochemical Stains Surgery Specimen Level IV IHC Stain ADDITIONAL HEADER OPERATION: Right breast biopsy PRE-OP DIAGNOSIS: Right breast TISSUE SUBMITTED: A- Right breast mass tissue, 6o'clock, 4cm from nipple, B- Right breast mass tissue, 11o'clock, 3cm from nipple Ischemic Time: <1 minute Fixation Time: 77 hours MICROSCOPIC DIAGNOSIS A. Right breast, mass, 6:00, 4 cm from nipple, biopsy: * Benign breast tissue. B. Right breast, mass, 11:00, 3 cm from nipple, biopsy: * Benign breast tissue - see note. * Note: IHC for CK5/6 and p40 support the histologic impression. MICROSCOPIC DESCRIPTION Slides are reviewed. All matched controls reacted appropriately. These tests were developed and their performance characteristics determined by [facility]. They may not have been cleared or approved by the U.S. Food and Drug Administration. The FDA has determined that such clearance or approval is not necessary.? The above immunohistochemical/dualISH?markers are ordered and reviewed by the Pathologist. GROSS DESCRIPTION A. Received in formalin in a container labeled with the patient's name, date of , and breast mass tissue 6:00 are approximately 2 choi-yellow core biopsies of fibrofatty tissue measuring 0.6 x 0.2 cm and 1.0 x 0.2 cm. Submitted in toto in A1. B. Received in formalin in a container labeled with the patient's name, date of , and breast mass tissue 11:00 are multiple choi-yellow fragments of fibrofatty tissue measuring 1.2 x 0.5 x 0.3 cm in aggregate. Submitted in toto in B1. [facility] 01-25-2025 CPT:19511f1,[id number]
== END 2025-01-22 23:59 | disposition home or self-care (01) ==
LOC: LABSPEC 21:20
PROVIDERS: PCP Family Medicine; Visit Provider Surgery
DX: N63.10 Unspecified lump in the right breast, unspecified quadrant (principal)
CPT/HCPCS: 88305; 88341; 88342

== ENCOUNTER → 2025-08-11 | Outpatient (CLI) | payer OTHER, SELFPAY ==
--- NOTE | 2025-08-11 13:22 | US_ITS ---
PROCEDURE: BREAST LIMITED UNILATERAL 08/11/2025 REASON FOR EXAM: F, Age 44 y/o , 6 MONTH F/U COMPARISON: Prior study dated January 18, 2025.. TECHNIQUE: Procedure Code: USBRSTLIMIT Modality: US Procedure: BREAST LIMITED UNILATERAL. The periareolar region of the right breast was examined with ultrasound. FINDINGS: The previously seen retroareolar simple cyst is not seen at this time. Essentially stable hypoechoic lobulated structure at the 11 o'clock position of the breast at 3 cm from the nipple. Stable 5 mm x 6 mm x 4 mm hypoechoic nodule at the 6 o'clock position of the breast at 4 cm from the nipple. Tissue clip markers from prior biopsy seen. US/Breast Limited Unilateral IMPRESSION: Status post right breast biopsy. These are unchanged. The previously seen retroareolar cyst in the right breast is not seen at this t ken. BI-RADS 2: BENIGN RECOMMENDATION: Routine annual follow-up in 1 Year Reading Location: [facility]
--- OUTSIDE RECORDS SUMMARY | 2025-08-11 14:55 | XMS RPT_ITS | CCD ---
Author Organization [facility] Care Team Providers Care Chain Carrier Name Role Phone MARIA ELENA CRAWFORD Attending Unavailable KEARA FLORES Primary Care Unavailabl e HASSANI, NALDO B Attending Unavailable MARIA ELENA CRAWFORD Referring Unavailable KEARA FLORES Primary Care Unavaillydia Flores MD, Keara Manzanares Primary Care Provider HASSANI, NALDO B Admitting Unavailable HASSNELLY, NALDO B Attending Unavailable KEARA FLORES Primary Care Unavailabl e HASSANI, NALDO B Admitting Unavailable HASSANI, NALDO B Attending Unavailable KEARA FLORES Primary Care Unavailabl e HASSANI, NALDO B Referring Unavailable KEARA FLORES Primary Care Unavailabl e HASSANI, NALDO B Referring Unavailable KEARA FLORES [facility] Care Unavailabl e HASSANI, NALDO B Attending Unavailable HASSANI, NALDO B Referring Unavailable KEARA FLORES [facility] Care UnavailKeara Burrows MD Primary Care Provider Dr. Keara Flores MD Primary Care Provider Dr. Keara Flores MD Attending Provider Dr. Keara Flores MD Referring Provider Eveline Manuel Attending Provider Eveline Manuel Referring Provider Dr. Kathy Zazueta MD Attending Provider Keara Flores Primary Care Unavailable Kathy Zazueta Attending Unavailable Miedel, Keara Attending Unavailable Miedel, Keara Primary Care Unavailable Miedel, Keara Primary Care Unavailable Ronit Edgar Attending Unavailable Ronit Edgar Referring Unavailable Alfonso QA REVIEWER, Eveline Attending Unavailable Miedel, Keara Referring Unavailable Miedel, Keara Primary Care Unavailable Inez Birmingham Attending Unavailabl e Miedel, Keara Referring Unavailable Miedel, Keara Primary Care Unavailable Miedel, Keara Referring Unavailable Miedel, Keara Primary Care Unavailable Kathy Zazueta Attending Unavailable Irene Brady Attending Unavailable Miedel, Keara Referring Unavailable Miedel, Keara Primary Care Unavailable Alfonso QA REVIEWER, Eveline Attending Unavailable Alfonso QA REVIEWER, Eveline Referring Unavailable Miedel, Keara Primary Care Unavailable MIEDEL, KEARA E Primary Care Unavailable MIEDEL, KEARA E Primary Care Unavailable DEMETRIO TELLEZ Attending Unavailable DEMETRIO TELLEZ Referring Unavailable MIEDEL, KEARA E Primary Care Unavailable Allergies Allergy Classification Reported Allergen(s) Allergy Type Date of Onset Reaction(s) Facility (5 sources) Omeprazole Drug Allergy 07-13-2019 Other [facility] Comment on above: Palpitations (1 source) Omeprazole Drug Allergy 01-22-2025 [facility] Repository Medications Current Medications Medication Drug Class(es) Dates Sig (Normalized) Sig (Original) acyclovir 400 mg oral tablet (16 sources) Herpesvirus Nucleoside Analog DNA Polymerase Inhibitor, Herpes Simplex Virus Nucleoside Analog DNA Polymerase Inhibitor, Herpes Zoster Virus Nucleoside Analog DNA Polymerase Inhibitor Start: 06-24-2019 take 1 tablet by mouth twice daily as needed Acyclovir 400 mg tablet Active 400 mg PO TWICE A DAY as needed for cold sores June 24, 2019 12:00am Start: 06-24-2019 Acyclovir (Zov irax) 5 % cream Active 1 NMA TOPICAL ONCE as needed for cold sores June 24, 2019 12:00am Start: 06-24-2019 Acyclovir (Zov irax) 5 % cream Active 1 APPLIC TOPICAL ONCE June 23, 2019 11:00pm calcium chloride 0.0014 meq/ml / potassium chloride 0.004 meq/ml / sodium chloride 0.103 meq/ml / sodium lactate 0.028 meq/ml injectable solution (2 sources) Start: 07-22-2024 End: 07-23-2024 take 100 mL intravenously every hour 100 mL/hr, intravenous, Continuous, Starting on Sat07/22/24 at 1645, For 1 day, Recovery (only) clotrimazole 10 mg/ml topical cream (3 sources) Azole Antifungal Start: 08-13-2017 clotrimazole (ANTIFUNGAL, CLOTRIMAZOLE,) 1 % cream Apply 1 application to affected area twice daily. 45 g 1 08/13/2017 Active diazePAM 5 mg oral tablet (11 sources) Benzodiazepine Start: 06-24-2019 take 1 tablet by mouth once daily as needed for anxiety Diazepam 5 mg tablet Active 5 mg PO DAILY as needed for Anxiety June 24, 2019 12:00am diazePAM (VALIUM ) 2 mg tablet Take by mouth three times a day as needed. Active diazePAM (Valium ) 2 mg tablet Take by mouth every 8 hours if needed for anxiety. Active 0.5 ml HYDROmorphone hydrochloride 1 mg/ml prefilled syringe (3 sources) Opioid Agonist Start: 07-22-2024 0.5 mg, intravenous, Every 5 min PRN, pain severe (7-10), first line, Starting on Sat07/22/24 at 1619, Recovery (only), Max total of 4 mg regardless of dose. ibuprofen 200 mg oral tablet (2 sources) Nonsteroidal Anti-inflammatory Drug take 3 tablets by mouth every six hours ibuprofen 200 mg tablet Take 3 tablets (600 mg) by mouth every 6 hours. Active levonorgestrel 0.781034 mg/hr intrauterine system (3 sources) Progestin, Progestin-containin g Intrauterine Device Start: 06-29-2024 Levonorgestrel (Mirena) 21 mcg/24hr (up to 8 yrs) 52 mg intrauterine device Active 1 NMA INTRA-UTER ONCE June 29, 2024 12:00am as a single dose metroNIDAZOLE 500 mg oral tablet (1 source) Nitroimidazole Antimicrobial Start: 08-20-2024 End: 08-27-2024 take 1 tablet by mouth twice daily metroNIDAZOLE (Flagyl) 500 mg tablet Indications: Bacterial vaginosis Take 1 tablet (500 mg) by mouth 2 times a day for 7 days. 14 tablet 08/20/2024 08/27/2024 Active omeprazole 40 mg delayed release oral capsule (2 sources) Proton Pump Inhibitor take 1 capsule by mouth every twenty-four hours as needed omeprazole (PriLOSEC) [address] capsule Take 1 capsule (40 mg) by mouth once daily as needed. Do not crush or chew. Active oseltamivir 75 mg oral capsule (1 source) Neuraminidase Inhibitor Start: 10-03-2024 End: 10-08-2024 take 1 capsule by mouth twice daily oseltamivir (TAMIFLU) 75 mg capsule Indications: Influenza A Take 1 capsule by mouth two times a day for 5 days. 10 capsule 10/03/2024 10/08/2024 Active oxyCODONE hydrochloride 5 mg oral tablet (2 sources) Opioid Agonist Start: 07-22-2024 take 1 tablet by mouth every six hours for pain oxyCODONE (Roxicodone) 5 mg immediate release tablet Indications: Postoperative pain Take 1 tablet (5 mg) by mouth every 6 hours if needed for severe pain (7 - 10). 15 tablet 07/22/2024 Active oxygen (O2) therapy (1 source) Start: 07-22-2024 inhalation, Continuous PRN - O2/gases, other, Starting on Sat07/22/24 at 1619, Recovery (only), Device: Nasal Cannula, Rate in liters per minute: Other, Custom Value: 1-6 LPM, Keep O2 Sat Above: 92% promethazine (Phenergan) 12.5 mg in sodium chloride 0.9% 50 mL IV (1 source) Start: 07-22-2024 12.5 mg, intravenous, Administer over 15 Minutes, Once as needed, nausea/vomiting, first line, Nausea/vomiting, second line, Starting on Sat07/22/24 at 1619, For 1 dose, Recovery (only) SUMAtriptan 50 mg oral tablet (2 sources) Serotonin-1b and Serotonin-1d Receptor Agonist Start: 12-11-2024 take 1 tablet by mouth every two hours SUMAtriptan (IMITREX) 50 mg tablet take 1 tablet by mouth at onset of headache, can repeat in 2 hours if needed 12/11/2024 Active valACYclovir 1000 mg oral tablet (5 sources) Herpesvirus Nucleoside Analog DNA Polymerase Inhibitor, Herpes Simplex Virus Nucleoside Analog DNA Polymerase Inhibitor, Herpes Zoster Virus Nucleoside Analog DNA Polymerase Inhibitor Start: 08-13-2017 valACYclovir (VALTREX) 1 gram tab Indications: Recurrent cold sores Take 2,000 mg BID for 1 day for onset of cold sore. 12 tablet 08/13/2017 Active take 1 tablet by alisha twice daily as needed valACYclovir (Valtrex) 1 gram tablet Zack e 1 tablet (1,000 mg) by mouth 2 times a day as needed (Cold sores). Active Completed/Discontinued Medications Medication Drug Class(es) Dates Sig (Normalized) Sig (Original) acetaminophen 325 mg oral tablet (3 sources) Start: 07-22-2024 End: 07-22-2024 take 975 mg by mouth once as needed for pain 975 mg, oral, Once, On Sat07/22/24 at 1230, For 1 dose, Preprocedure, If ordered PRN for pain, nurse is permitted to administer this medication for higher pain scores based on patient preference? Yes take 2 tablets by mo [facility] every six hours as needed acetaminophen (Tylenol) 500 mg tablet Ta ke 2 tablets (1,000 mg) by mouth every 6 hours if needed for mild pain (1 - 3). Active acetaminophen 325 mg / oxyCODONE hydrochloride 5 mg oral tablet (5 sources) Opioid Agonist Start: 05-09-2018 End: 05-21-2018 Oxycodone-Acetaminophen 1 TABLET tablet Discontinued 1 - 2 {tbl} PO EVERY 4 HOURS NEEDED as needed for Pain 06 01May 09, 2018 12:00am May 21, 2018 9:38am Start: 05-09-2018 End: 05-21-2018 take 1 tablet by mouth every four hours as needed Oxycodone-Acetaminophen Discontinued 1 - 2 TABLET PO EVERY 4 HOURS NEEDED 06 01May 08, 2018 11:00pm May 21, 2018 8:38am ceFAZolin 2000 mg injection (1 source) Cephalosporin Antibacterial Start: 07-22-2024 End: 07-22-2024 2 g, intravenous, Administer over 30 Minutes, Once, On Sat07/22/24 at 1230, For 1 dose, Preprocedure, Administer within 60 minutes prior to incision. premix bag, Dosing of this medication varies based on severity of illness. Does this patient have sepsis or concern for sepsis (probable or documented infection plus systemic manifestations of infection)? No, Suspected Indication (Select all that apply): Surgical Prophylaxis, Indications: Surgical Prophylaxis dicyclomine hydrochloride 20 mg oral tablet (5 sources) Anticholinergic Start: 07-13-2019 End: 06-29-2024 take 1 tablet by mouth twice daily 30 minutes before mealtime Dicyclomine 20 MG tablet Discontinued 20 mg PO TWICE A DAY July 13, 2019 1:00am June 29, 2024 3:46pm Take 30 minutes before meal Diltiazem 2% Lido 5% (5 sources) Start: 06-24-2019 End: 01-04-2025 Diltiazem 2% Lido 5% Discontinued 1 U TOPICAL 2 to 3 times per day as needed for anal fissure June 24, 2019 12:00am January 04, 2025 3:05pm Start: 06-24-2019 Diltiazem 2% L cate 5% Active 1 UNIT TOPICAL 2 to 3 times per day June 23, 2019 11:00pm Start: 06-24-2019 Diltiazem 2% L cate 5% Active 1 UNIT TOPICAL 2 to 3 times per day June 24, 2019 12:00am Ethinyl Estradiol / Norethindrone (6 sources) Estrogen Start: 02-13-2024 End: 07-22-2024 take 0.05 ug by mouth in the morning norethindrone ac-eth estradioL (Microgestin 1/20) 1-20 mg-mcg tablet Take 1 tablet by mouth early in the morning.. 02/13/2024 07/22/2024 Discontinued (Therapy completed) Start: 02-13-2024 take 0.05 ug by mout h in the morning norethindrone ac-eth estradioL (Microgestin 1/20) 1-20 mg-mcg tablet Take 1 tablet by mouth early in the morning.. 02/13/2024 Active Start: 02-13-2024 End: 06-29-2024 Norethindrone Ac-Eth Estradi ol (Loestrin /20 (21)) 1-20 mg-mcg tablet Discontinued 1 {tbl} PO DAILY 63 February 13, 2024 12:00am June 29, 2024 3:47pm gabapentin 300 mg oral capsule (1 source) Anti-epileptic Agent Start: 07-22-2024 End: 07-22-2024 take 1 capsule by mouth once 600 mg, oral, Once, On Sat07/22/24 at 1230, For 1 dose, Preprocedure, Capsules may be opened and sprinkled on food (eg, applesauce, orange juice, pudding). Capsules may be opened and sprinkled on food (eg, applesauce, orange juice, pudding hydrocortisone 25 mg/ml topical cream (6 sources) Corticosteroid Start: 03-03-2024 End: 01-04-2025 Hydrocortisone (Proctozone-Hc) 2.5 % cream with perineal applicator Discontinued 1 NMA RC 1 to 2 times per day as needed for hemorrhoids May 07, 2024 10:17am January 04, 2025 3:05pm Hydrocortisone 2.5%/Lidocaine 5% Suppository (Cmpd) [Hydrocortisone 2.5%/Lidocaine 5% Suppository (Compound)] (Hydrocortisone ) suppository (6 sources) Start: 05-07-2024 End: 01-04-2025 Hydrocortisone 2.5%/Lidocaine 5% Suppository (Cmpd) [Hydrocortisone 2.5%/Lidocaine 5% Suppository (Compound)] (Hydrocortisone ) suppository Discontinued 0 .Route May 07, 2024 10:17am January 04, 2025 3:06pm Insert one suppository into the rectum Start: 03-03-2024 End: 05-07-2024 Hydrocortisone 2.5%/Lidocain e 5% Suppository (Cmpd) [Hydrocortisone 2.5%/Lidocaine 5% Suppository (Compound)] (Hydrocortisone ) suppository Discontinued 0 .Route March 03, 2024 12:00am May 07, 2024 10:20am Insert one suppository into the rectum 5 ml midazolam 1 mg/ml injection (1 source) Benzodiazepine Start: 07-22-2024 End: 07-22-2024 2 mg, intravenous, Once as needed, anxiety, Starting on Sat07/22/24 at 1239, For 1 dose, Preprocedure 2 ml ondansetron 2 mg/ml injection (7 sources) Serotonin-3 Receptor Antagonist Start: 07-22-2024 End: 07-22-2024 4 mg, intravenous, Once as needed, nausea/vomiting, first line, Starting on Sat07/22/24 at 1619, For 1 dose, Recovery (only), When administering via IV Push, administer over 3-5 minutes. Start: 05-11-2018 End: 05-21-2018 take 1 tablet by mouth three times daily as needed for nausea and vomiting Ondansetron (Zofran Odt) 8 mg tablet,disintegrating Discontinued 8 mg PO THREE TIMES A DAY as needed for nausea and vomiting May 11, 2018 12:00am May 21, 2018 9:38am phenazopyridine hydrochloride 200 mg oral tablet (1 source) Start: 07-22-2024 End: 07-22-2024 take 200 mg by mouth once 200 mg, oral, Once, On Sat07/22/24 at 1230, For 1 dose, Preprocedure, May discolor urine (orange). Problems Active Problems Problem Classification Problem Date Documented Da te Episodic/Chronic Anal and rectal conditions (5 sources) Anal fissure; Translations: [Anal fissure, unspecified] 06-24-2019 Episodic Anxiety disorders (5 sources) Anxiety; Translations: [Anxiety disorder, unspecified] 06-24-2019 Chronic Appendicitis and other appendiceal conditions (5 sources) Acute appendicitis; Translations: [Unspecified acute appendicitis] 06-24-2019 Episodic Bacterial infection; unspecified site (2 sources) Other specified bacterial agents as the cause of diseases classified elsewhere; Translations: [Other specified bacterial agents as the cause of diseases classified elsewhere] Onset: 08-20-2024 Episodic Cardiac dysrhythmias (5 sources) Palpitations; Translations: [Palpitations] 06-13-2019 Episodic Diseases of white blood cells (3 sources) Leukocytosis; Translations: [Elevated white blood cell count, unspecified] Onset: 10-10-2009 10-10-2009 Chronic Gastrointestinal hemorrhage (10 sources) Rectal hemorrhage; Translations: [Hemorrhage of anus and rectum] 06-13-2019 Episodic Genitourinary symptoms and ill-defined conditions (1 source) Female stress incontinence; Translations: [Stress incontinence (female) (male)] 03-30-2024 Chronic Hemorrhoids (3 sources) Hemorrhoids; Translations: [Unspecified hemorrhoids] 03-06-2024 Episodic Inflammatory diseases of female pelvic organs (3 sources) Bacterial vaginosis; Translations: [Acute vaginitis] Onset: 08-20-2024 08-20-2024 Episodic Influenza (2 sources) Influenza due to Influenza A virus; Translations: [Influenza due to other identified influenza virus with other respiratory manifestations] 10-03-2024 Episodic Neoplasms of unspecified nature or uncertain behavior (3 sources) Reactive thrombocytosis; Translations: [Essential thrombocythemia] Onset: 10-10-2009 10-10-2009 Chronic Nonmalignant breast conditions (8 sources) Breast lump; Translations: [Unspecified lump in the right breast, unspecified quadrant] Onset: 03-30-2025 01-04-2025 Episodic Comment on above: x2 Open wounds of extremities (5 sources) Laceration of right thumb; Translations: [Laceration without foreign body of right thumb without damage to nail, initial encounter] 06-24-2019 Episodic Other diseases of bladder and urethra (1 source) Overactive bladder; Translations: [Overactive bladder] 03-30-2024 Chronic Other female genital disorders (3 sources) Cyst of vagina; Translations: [Other specified noninflammatory disorders of vagina] 03-04-2024 Episodic Other gastrointestinal disorders (3 sources) Irritable bowel syndrome; Translations: [Irritable bowel syndrome without diarrhea] 01-22-2024 Chronic Other gastrointestinal disorders (5 sources) Diarrhea; Translations: [Diarrhea, unspecified] 06-24-2019 Episodic Other nervous system disorders (1 source) Postoperative pain ; Translations: [Other acute postprocedural pain] 07-22-2024 Episodic Other non-traumatic joint disorders (5 sources) Hip pain; Translations: [Pain in left hip] 04-05-2025 Episodic Other non-traumatic joint disorders (1 source) Pain in left hip; Translations: [Pain of left hip] Onset: 04-05-2025 Episodic Other upper respiratory infections (1 source) Sore throat symptom; Translations: [Acute pharyngitis, unspecified] 10-03-2024 Episodic Prolapse of female genital organs (20 sources) Rectocele; Translations: [Midline cystocele] Onset: 03-26-2024 Chronic Unclassified (2 sources) New Patient Visit; Translations: [New Patient Visit] Onset: 03-26-2024 Past or Other Problems Problem Classification Problem Date Documented Date Episodic/Chronic Abdominal pain (5 sources) Abdominal pain; Translations: [Unspecified abdominal pain] Onset: 02-04-2013 06-24-2019 Episodic Contraceptive and procreative management (1 source) Encounter for contraceptive management, unspecified; Translations: [Encounter for contraceptive management, unspecified] Onset: 06-29-2024 Episodic Genitourinary symptoms and ill-defined conditions (1 source) Dysuria; Translations: [Dysuria] Onset: 12-29-2024 Episodic Nutritional deficiencies (3 sources) Iron deficiency; Translations: [Iron deficiency] Onset: 10-10-2009 10-10-2009 Episodic Other screening for suspected conditions (not mental disorders or infectious disease) (1 source) Encounter for screening mammogram for malignant neoplasm of breast; Translations: [Encounter for screening mammogram for malignant neoplasm of breast] Onset: 04-26-2024 Episodic Results Test Name Value Interpretation Reference Range Facility CNOVon 04-05-2025 CNOV Office Visit ([facility]) ---- KEVYNMEGMeera Eric ([id number]) 1980 F Date Time Provider Department 04/05/25 11:15 AM DEMETRIO TELLEZ During your visit today, we recorded the following information about you: Temperature Pulse Respiration Blood pressure 98.1 degrees 80/minute 18/minute 102/80 Weight 75.1 kg Demetrio Tellez APRN.FUND DEVELOPMENT MANAGER 04/05/2025 11:54 AM Signed [facility] Eric Kevyn is a 44 year old female. Patient presents with: Pain: Left hip pain x 1 day HPI Nontoxic-appearing female presents urgent care chief complaint of left hip pain. Duration of symptoms has been present for around 2 weeks however last night when she pivoted her foot to get out of the shower she felt a pain in her left hip. States pain is worse today. Rates pain 3 out of 10 with sitting increased pain with ambulation. 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 Denies any specific injury. Denies any numbness or tingling. No leg weakness. No fevers. No rashes. No swelling. Past medical history prescription medications allergies reviewed. Denies chance of Review of Systems Constitutional: Negative for activity change, diaphoresis, fatigue and fever. Musculoskeletal: Positive for gait problem. Negative for arthralgias, back pain, joint swelling, myalgias, neck pain and neck stiffness. Skin: Negative for pallor, rash and wound. Neurological: Negative for dizziness, seizures, syncope, weakness, light-headedness, numbness and headaches. Psychiatric/Behavio ral: Negative for confusion. Objective BP 102/80 Pulse 80 Temp 36.7 ?C (98.1 ?F) Resp 18 Wt 75.1 kg (165 lb 9.1 oz) LMP 07/30/2017 SpO2 98% BMI 27.34 kg/m? Physical Exam Constitutional: Appearance: Normal appearance. She is normal weight. HENT: Head: Normocephalic. Eyes: Conjunctiva/sclera: Conjunctivae normal. Cardiovascular: Rate and Rhythm: Normal rate. Pulmonary: Effort: Pulmonary effort is normal. Musculoskeletal: Cervical back: Normal range of motion. Left hip: Tenderness present. No deformity, lacerations or bony tenderness. Normal range of motion. Normal strength. Left upper leg: Normal. Comments: Pain with FADIR and RACHAEL. No erythema edema noted. No point tenderness. Skin: Findings: No rash. Neurological: General: No focal deficit present. Mental Status: She is alert and oriented to person, place, and time. Mental status is at baseline. IMPRESSION: No radiographic evidence of acute osseous injury. {ASSESSMENT/PLAN: 1. Pain of left hip - ICD9: 719.45, ICD10: M25.552 - XR HIP GENERAL 3V PELV/AP/LAT LEFT Diagnosed with left hip pain. Labral tear versus osteoarthritis. X-ray unremarkable. Suspicious of labral tear. Patient was educated on supportive therapies. Patient will follow up with primary care provider as needed. Patient was instructed to immediately proceed to emergency room for any new, worsening, or symptoms lasting longer than anticipated. The patient's clinical presentation is otherwise unremarkable at this time. Based on exam and clinical finding, the patient is stable for discharge. Plan of care was discussed with patient. Patient verbalizes understanding and agrees to plan of care. This note was generated using [employer] software. It may contain errors in wording, punctuation, or spelling. Demetrio Tellez APRN.FUND DEVELOPMENT MANAGER MDM Procedures Allergies As of Date: 04/05/2025 (No Known Allergies) Date Reviewed: 04/05/2025 Reviewed by: Henny Martinez MA - Fully Assessed Reason for Visit: Pain [78] Cmt: Left hip pain x 1 day Primary Visit Diagnosis:Pain of left hip [M25.552] Order(s):XR HIP GENERAL 3V PELV/AP/LAT LEFT [1780840] Order #: [id number] FUTURE CONSULT TO ORTHOPAEDICS [9026] Order #: [id number]: 1 FUTURE Prescriptions as of 04/05/2025 - acyclovir (ZOVIRAX) 400 mg tablet TAKE 1 TABLET BY MOUTH 2 TIMES A DAY DIRECTED NEEDED FOR COLD SORES - diazePAM (VALIUM) 2 mg tablet Take by mouth three times a day as needed. - SUMAtriptan (IMITREX) 50 mg tablet take 1 tablet by mouth at onset of headache, can repeat in 2 hours if needed - valACYclovir (VALTREX) 1 gram tab Take 2,000 mg BID for 1 day for onset of cold sore. - clotrimazole (ANTIFUNGAL, CLOTRIMAZOLE,) 1 % cream Apply 1 application to affected area twice daily. Problem List As Of Date 04/05/2025 Noted Resolved Leukocytosis [D72.829] 10/10/2009 Iron Deficiency [E61.1] 10/10/2009 Secondary Thrombocytosis 10/10/2009 Lower abdominal pain [R10.30] 02/04/2013 Level of Service: OFFICE/OUTPATIENT ESTABLISHED LOW [facility] 20 MIN [36915] Letter Text Encounter Status:Closed by DEMETRIO TELLEZ on 04/05/25 [facility] XR HIP 3V PELV+ AP/LAT LTon 04-05-2025 XR HIP 3V PELV+ AP/LAT LT * * *Final Report* * * DATE OF EXAM: Apr 05 2025 11:45AM WOX [id number] - XR HIP 3V PELV+ AP/LAT LT / PROCEDURE REASON: Pain of left hip * * * * Physician Interpretation * * * * TITLE: XR HIP 3V PELV+ AP/LAT LT CLINICAL INDICATION: Pain after injury TECHNIQUE: AP radiograph of the pelvis and AP/frog leg lateral radiographs of the left hip COMPARISON: None FINDINGS: No acute fracture or dislocation identified. Hip joint spaces appear symmetric and preserved. Intrauterine device projects over the pelvis. Phleboliths in the pelvis. IMPRESSION: No radiographic evidence of acute osseous injury. Resort Housekeeper: [facility] Transcribe Date/Time: Apr 05 2025 11:48A Dictated by : SHONNA EDWARDS MD This examination was interpreted and the report reviewed and electronically signed by: SHONNA EDWARDS MD on Apr 05 2025 11:49AM EST [id number] Normal [facility] XR Pelvis and Hip - left AP and Lateral frogon 04-05-2025 IMPRESSION: No radiographic evidence of acute osseous injury. Resort Housekeeper: [facility] Transcribe Date/Time: Apr 05 2025 11:48A Dictated by : SHONNA EDWARDS MD This examination was interpreted and the report reviewed and electronically signed by: SHONNA EDWARDS MD on Apr 05 2025 11:49AM EST DIVISION OF RADIOLOGY * * *Final Report* * * DATE OF EXAM: Apr 05 2025 11:45AM WOX [id number] - XR HIP 3V PELV+ AP/LAT LT / PROCEDURE REASON: Pain of left hip * * * * Physician Interpretation * * * * TITLE: XR HIP 3V PELV+ AP/LAT LT CLINICAL INDICATION: Pain after injury TECHNIQUE: AP radiograph of the pelvis and AP/frog leg lateral radiographs of the left hip COMPARISON: None FINDINGS: No acute fracture or dislocation identified. Hip joint spaces appear symmetric and preserved. Intrauterine device projects over the pelvis. Phleboliths in the pelvis. DIVISION OF RADIOLOGY Provider, [facility] [place] - 04/05/2025 * * *Final Report* * * DATE OF EXAM: Apr 05 2025 11:45AM WOX 5351 - XR HIP 3V PELV+ AP/LAT LT / PROCEDURE REASON: Pain of left hip * * * * Physician Interpretation * * * * TITLE: XR HIP 3V PELV+ AP/LAT LT CLINICAL INDICATION: Pain after injury TECHNIQUE: AP radiograph of the pelvis and AP/frog leg lateral radiographs of the left hip COMPARISON: None FINDINGS: No acute fracture or dislocation identified. Hip joint spaces appear symmetric and preserved. Intrauterine device projects over the pelvis. Phleboliths in the pelvis. IMPRESSION IMPRESSION: No radiographic evidence of acute osseous injury. Resort Housekeeper: PSCB Transcribe Date/Time: Apr 05 2025 11:48A Dictated by : SHONNA EDWARDS MD This examination was interpreted and the report reviewed and electronically signed by: SHONNA EDWARDS MD on Apr 05 2025 11:49AM EST [facility] Radiology Study observation (narrative) [facility] X[facility] Pelvis and Hip - left AP and Lateral frogOrdered By: Ccf Provider on 04-05-2025 [facility] Immunohistochemical Stainson 01-22-2025 Immunohistochemical Stains Patient Age/Sex Location Account Attending Physician CLEOPATRA BAGLEY 44/F LABSPEC [id number] Dr. Kathy Zazueta MD Specimen: [id number] Received: 01/22/25 Status: MIRELLA Jarquin Num: [id number] Spec Type: BREAST BX Subm Dr: Dr. Kathy Zazueta MD HEADER OPERATION: Right breast biopsy PRE-OP DIAGNOSIS: Right breast TISSUE SUBMITTED: A- Right breast mass tissue, 6o'clock, 4cm from nipple, B- Right breast mass tissue, 11o'clock, 3cm from nipple Ischemic Time: <1 minute Fixation Time: 77 hours MICROSCOPIC DIAGNOSIS A. Right breast, mass, 6:00, 4 cm from nipple, biopsy: * Benign breast tissue. B. Right breast, mass, 11:00, 3 cm from nipple, biopsy: * Benign breast tissue - see note. * Note: IHC for CK5/6 and p40 support the histologic impression. MICROSCOPIC DESCRIPTION Slides are reviewed. All matched controls reacted appropriately. These tests were developed and their performance characteristics determined by [facility]. They may not have been cleared or approved by the U.S. Food and Drug Administration. The FDA has determined that such clearance or approval is not necessary.??? The above immunohistochemical /dualISH???markers are ordered and reviewed by the Pathologist. GROSS DESCRIPTION A. Received in formalin in a container labeled with the patient's name, date of , and breast mass tissue 6:00 are approximately 2 choi-yellow core biopsies of fibrofatty tissue measuring 0.6 x 0.2 cm and 1.0 x 0.2 cm. Submitted in toto in A1. B. Received in formalin in a container labeled with the patient's name, date of , and breast mass tissue 11:00 are multiple choi-yellow fragments of fibrofatty tissue measuring 1.2 x 0.5 x 0.3 cm in aggregate. Submitted in toto in B1. [facility] 01-25-2025 CPT:06691r2,89152,8 8341 Patient Age/Sex Location Account Attending Physician CLEOPATRA BAGLEY 44/F LABSPEC [id number] Dr. Kathy Zazueta MD Signed (signatur e on file) Dr. Daija Schilling MD 01/27/25 1411 Normal [facility] Comment on above: Performed By: #### P GAVINO #### [facility] [address] [place], [address] Surgery Visit Reporton 01-22 Surgery Visit Report [facility] [address] [employer], [place] [address] OFFICE VISIT Date of Service: 01/22/25 MR#: [id number] Acct: [id number] Name: CLEOPATRA BAGLEY Rep #: [id number] : 1980 Provider: Dr. Kathy ashford MD Age/Sex: 44/F Location: [facility] Status: Signed Intake Vital Signs 01/04/25 15:03 01/22/25 14:47 Height 5 ft 5 in 5 ft 5 in Weight: 158 lb 159 lb BMI 26.2 26.4 BP 124/81 H 122/83 H Blood Pressure Location Rt brachial Position Sitting Respiration 17 Pulse 85 Pulse Source Monitor Temp 97.4 F L Temp Source Temporal Pulse Oximetry (%) 97 Oxygen Delivery Method room air Intake Visit Reasons: BIRADS 4 Chief Complaint: birads 4 Is patient in pain?: No Allergies omeprazole Allergy (Unknown, Verified 01/22/25 14:49) Other Medications ???Medication ???Instructions ???Recorded ???Confirmed ???Type acyclovir 400 mg tablet 400 mg PO BID PRN cold sores 06/2401/22/25 History acyclovir 5 % topical cream 1 applic topical ONCE PRN cold 01/22/25 History (Zovirax) sores diazepam 5 mg tablet 5 mg PO DAILY PRN Anxiety #20 tabs 06/24/19 01/22/25 History levonorgestrel (Mirena) 1 device intrauterine ONCE 4 01/22/25 History PFSH Medical History Anal fissure Anxiety Surgical History S/P tonsillectomy S/P appendectomy Hx of breast augmentation Social History adopted: Yes household members: family current occupational status: employed current occupation: [employer] current occupational exposures/hazards: No pets and animals: Yes history of recent travel: No sexually active: Yes Smoking Status: Former smoker second hand exposure: No alcohol intake: current alcohol intake frequency: holidays/special occasions only substance use type: marijuana caffeine: Yes what type of physical activity do you participate in: none frequency: does not exercise seatbelt use: always do you feel safe at home: Yes additional social history: Spouse - Christopher, Children - Cyric HPI HPI HPI: 44-year-old female presents due to abnormal breast mammography and ultrasound. Patient that she noticed about 2 to 3 weeks ago had some pain in the area about 6:00 but that has resolved. Patient denies any change in size. Patient does have bilateral implants below the muscle. Patient's ultrasound showed an 11:00 1 cm from the nipple hypoechoic lesion as well as a 6:00 4 cm from the nipple hypoechoic lesion recommended biopsy given a BI-RADS 4. Patient also has a retroareolar cyst that was recommended for aspiration. Age at menses 15, age of of first child 30, family history of breast cancer???unknown, no previous breast biopsies ROS General General: Yes fatigue; No weight change, appetite, colon cancer, breast cancer or weakness HEENT HEENT: No difficulty swallowing, eye injury, eye surgery, swollen glands or hoarseness Endo Endocrine: No thyroid disease, diabetes mellitus, thyroid cancer, Hair loss, heat intolerance or cold intolerance Skin Skin: No rash or changing moles Breast Breast: Yes right breast lump, breast pain and abnormal US; No left breast lump, nipple discharge, abnormal mammogram or breast enlargement Musc Musculoskeletal: No back problems, arthritis, rheumatoid arthritis, gout or joint pain Cardio Cardiovascular: No murmur, pacemaker, heart disease, atrial fibrillation, high blood pressure, heart attack, heart stent, palpitations, shortness of breath with exertion or chest pain Psych Psychiatric: No depression, anxiety or hearing voices Resp Respiratory: No shortness of breath, No sleep apnea, No cough, No COPD, No asthma, No emphysema and No wheezing Gastro Gastrointestinal: No abdominal pain, No nausea or vomiting, No diarrhea, No constipation, No blood in stool, Yes acid reflux, No hemorrhoids, No ulcers, No gallbladder problem and No black,tarry stools Gavin Hematologic: No blood thinners, No blood disorders, No bleeding, No anemia and No blood clots Neuro Neurologic: No system reviewed and no additional complaints, except as documented, No as per HPI, No abnormal gait, No abnormal hearing, No abnormal movements, No abnormal speech, No behavioral changes, No burning sensations, No confusion, No convulsions, No disequilibrium, No dizziness, No localized weakness, No frequent falls, No headache(s), No lack of coordination, No loss of vision, No memory loss, No numbness, No other visual disturbances, No radicular pain, No restless legs, No sensory deficit, No syncope, No tingling, No tremor(s), No weakness and No other Exam Const General: cooperati (more content not included)... Normal [facility] Breast Limited Unilateralon 01-18-2025 Breast Limited Unilateral [facility] Imaging Services [address] [place] [place], [place] [address] Breast Limited Unilateral MR#: [id number] Acct: [id number] Name: CLEOPATRA BAGLEY Rep #: [id number] : 1980 F 44 From: Renee Villanueva PCP: Dr. Keara Flores MD Status: [facility] Study: Breast Limited Unilateral Date of Exam: Exam# [id number] Ordering Dr: Eveline Hamilton NP, NP -C ADDENDUM by Dr. Renee Vargas DO on 01/27/25 at 1806 This is a correction to the report. In the findings section, 1st sentence, it should state RIGHT breast. Not left breast. RIGHT breast ultrasound was targeted to the masses seen on the mammogram study as well as the palpable abnormality. Reading Location: [facility] 01/27/25 1806 Date cc: JOSH Hamilton; Dr. Keara Flores MD * Signed PROCEDURE: BREAST LIMITED UNILATERAL 01/18/2025 REASON FOR EXAM: RIGHT BREAST MASS Palpable mass right breast. Inconclusive mammogram shows 3 masses in the right breast. 1 of which does correlate to the palpable abnormality. Further workup with ultrasound will be performed. TECHNIQUE: Targeted left breast ultrasound. COMPARISON: Mammogram dated 01/18/2025 FINDINGS: Left breast ultrasound was targeted to the masses seen on the mammogram study as well as the palpable abnormality.. There is a benign-appearing cyst identified in the retroareolar region of the right breast correlating to a mass on the mammogram. This cyst is located at the retroareolar region measuring 2.4 x 2.3 x 1.5 cm. Aspiration is recommended. There are 2 solid hypoechoic lobulated masses seen in the right breast. These do correlate to masses seen on the mammogram. 1 of which does correlate to the palpable abnormality. The masses do have blood flow. The masses do not appear to be highly worrisome for malignancy however malignancy can not be entirely excluded. Biopsy of both masses is warranted. US/Breast Limited Unilateral IMPRESSION: Impression: The 2 solid masses in the right breast warrant biopsy in order to completely exclude a malignancy. The cyst should be aspirated. Birads: BI-RADS 4: SUSPICIOUS ABNORMALITY. Reading Location: [id number] CC: JOSH Hamilton; Dr. Keara Flores MD Resort Housekeeper: Signed Normal [facility] Breast imaging reportOrdered By: Renee Vargas on 01-18-2025 Study report [facility] Imaging Services [address] [place], [place] [address] DIAG MAMM W/CAD, BILAT MR#: [id number] Acct: [id number] Name: CLEOPATRA BAGLEY Rep #: [id number] : 1980 F 44 From: Tim Vargas DO PCP: Dr. Keara Flores MD Status: REG CLI Study:DIAG MAMM W/CAD, BILAT Date of Exam: 01/18/25 Exam# [id number] Ordering Dr: Eveline Hamilton NP QA REVIEWER-C EXAM: DIAG MAMM W/CAD, BILAT 01/18/2025 CLINICAL HISTORY: F, Age 44 y/o , RIGHT BREAST MASS palpable mass. Evaluate. Patient has bilateral breast implants. TECHNIQUE: Bilateral Diagnostic digital breast tomosynthesis with 2D and 3D images. Computer aided detection. COMPARISON: Images. Prior exam(s) dated none. FINDINGS: TISSUE DENSITY: The breast tissue is extremely dense which lowers the sensitivity of mammography. Bilateral Breast Mammographic Findings: A radiopaque marker is placed over the right breast palpable abnormality. Thereis a 1 cm partially obscured isodense mass seen in this location. It is best appreciated on the marion images. Further workup with ultrasound will be performed. There is a 2.5 cm partially obscured isodense mass in the retroareolar region, slightly medial aspect of the right breast. Further workup with ultrasound will be performed. There is a 2 cm partially obscured masslike density seen in the superior outer aspect of the right breast. This is best appreciated on the marion images. Further workup with ultrasound will be performed. No suspicious masses, suspicious clustered microcalcifications , architectural distortion or secondary signs of malignancy is identified in the left breast. Both breast implants appear to be intact. BI/DIAG MAMM W/CAD, BILAT IMPRESSION: OVERALL FINAL ASSESSMENT: BIRADS 0 Incomplete: Need additional imaging evaluation and/or prior mammograms for comparison.. RECOMMENDATION: Ultrasound. A letter with findings and recommendations will be mailed to the patient. Reading Location: [id number] CC: JOSH Hamilton; Dr. Keara Flores MD ~ Resort Housekeeper: Signed [facility] DIAG MAMM W/CAD, BILATon DIAG MAMM W/CAD, BILAT [facility] Imaging Services [address] [place], [place] [id number] DIAG MAMM W/CAD, BILAT MR#: [id number] Acct: [id number] Name: CLEOPATRA BAGLEY Rep #: [id number] : 1980 F 44 From: Renee Villanueva PCP: Dr. Keara Flores MD Status: [facility] CLI Study: DIAG MAMM W/CAD, BILAT Date of Exam: 01/18/25 Exam# [id number] Ordering Dr: Eveline Hamilton NP QA REVIEWER -C EXAM: DIAG MAMM W/CAD, BILAT 01/18/2025 CLINICAL HISTORY: F, Age 44 y/o , RIGHT BREAST MASS palpable mass. Evaluate. Patient has bilateral breast implants. TECHNIQUE: Bilateral Diagnostic digital breast tomosynthesis with 2D and 3D images. Computer aided detection. COMPARISON: Images. Prior exam(s) dated none. FINDINGS: TISSUE DENSITY: The breast tissue is extremely dense which lowers the sensitivity of mammography. Bilateral Breast Mammographic Findings: A radiopaque marker is placed over the right breast palpable abnormality. There is a 1 cm partially obscured isodense mass seen in this location. It is best appreciated on the marion images. Further workup with ultrasound will be performed. There is a 2.5 cm partially obscured isodense mass in the retroareolar region, slightly medial aspect of the right breast. Further workup with ultrasound will be performed. There is a 2 cm partially obscured masslike density seen in the superior outer aspect of the right breast. This is best appreciated on the marion images. Further workup with ultrasound will be performed. No suspicious masses, suspicious clustered microcalcifications , architectural distortion or secondary signs of malignancy is identified in the left breast. Both breast implants appear to be intact. BI/DIAG MAMM W/CAD, BILAT IMPRESSION: OVERALL FINAL ASSESSMENT: BIRADS 0 Incomplete: Need additional imaging evaluation and/or prior mammograms for comparison.. RECOMMENDATION: Ultrasound. A letter with findings and recommendations will be mailed to the patient. Reading Location: [id number] CC: JOSH Hamilton; Dr. Keara Flores MD Resort Housekeeper: Signed Normal [facility] [employer] Office Visit Reporton 01-04-2025 Oil Expeller Office Visit Report [facility] [address], [address] [place] [address] OFFICE VISIT Date of Service: 01/04/25 MR#: [id number] Acct: [id number] Name: CLEOPATRA BAGLEY Rep #: [id number] : 1980 Provider: JOSH morris Age/Sex: 44/F [place] [facility] [place]: Signed Intake Vital Signs 06/29/24 15:48 12/31/24 09:12 01/04/25 15:03 Height 5 ft 5 in 5 ft 5 in 5 ft 5 in Weight: 158 lb BMI 26.2 BP 124/81 H Intake Visit Reasons: painful R breast lump *copay $37 [employer] Machine Tender Required: No Is patient in pain?: Yes (right breast hurts when touching- sore) Allergies omeprazole Allergy (Unknown, Verified 01/04/25 15:05) Other Medications ???Medication ???Instructions ???Recorded ???Confirmed ???Type acyclovir 400 mg tablet 400 mg PO BID PRN cold sores 06/2401/04/25 History acyclovir 5 % topical cream 1 applic topical ONCE PRN cold 01/04/25 History (Zovirax) sores diazepam 5 mg tablet 5 mg PO DAILY PRN Anxiety #20 tabs 06/24/19 01/04/25 History levonorgestrel (Mirena) 1 device intrauterine ONCE 4 01/04/25 History Is last menstrual period known: No Post menopausal: No Patient : No : No PFSH Medical History Anal fissure Anxiety Surgical History S/P tonsillectomy S/P appendectomy Hx of breast augmentation Social History adopted: Yes household members: family current occupational status: employed current occupation: [employer] current occupational exposures/hazards: No pets and animals: Yes history of recent travel: No sexually active: Yes Smoking Status: Former smoker second hand exposure: No alcohol intake: current alcohol intake frequency: holidays/special occasions only substance use type: marijuana caffeine: Yes what type of physical activity do you participate in: none frequency: does not exercise seatbelt use: always do you feel safe at home: Yes additional social history: Spouse - Alexandreer, Children - Cyric HPI painful R breast lump *copay $37 Details: CLEOPATRA BAGLEY is a 44 year old who presents for right breast pain started on 12/30 and then states was able to feel a lump. The pain has lessened. History of bilateral breast augmentation History 3 Elective abortions Hx Para 1 Spontaneous abortions Hx # Term Pregnancies Ectopic pregnancies Hx # Pregnancies Multiple births # of living children 1 Past Pregnancies Del. Date Name GA/Weeks Outcome Route Bth Weight Gen Labor Lgth Anesthesia Del Locatn Provider FOB Unknown Cyric 2009 ROS Const Constitutional: Reports system reviewed and no additional complaints, except as documented : Reports system reviewed and no additional complaints, except as documented Skin Skin/Breast: Reports as per HPI Psych Psych: Reports system reviewed and no additional complaints, except as documented Exam Const General: cooperative and no acute distress Orientation: oriented x3 HENMT Head: normal to inspection Neck Neck: normal visual inspection Chest Breast inspection: normal inspection of the breasts and normal inspection of the axillae Breast palpation: normal palpation of the breasts (left, augmentation noted), normal palpation of the axillae and abnormal palpation of the breast (soft mobile mass overlaping implant, lower half below areola) Resp Effort Inspection: normal respiratory effort Coding Level of Care Code Off vis,est,level 3 Diagnoses Mass overlapping multiple quadrants of right breast N63.15 Breast mass location: overlapping quadrants Assessment and Plan Assessment and Plan (1) Breast mass, right: Status: Acute Qualifiers: Breast mass location: overlapping quadrants Qualified Code(s): N63.15 - Unspecified lump in the right breast, overlapping quadrants Orders: Orders Breast Limited Unilateral Today N63.10 - Unspecified lump in the right breast, unspecified quadrant DIAG MAMM W/CAD, BILAT Today N63.10 - Unspecified lump in the right breast, unspecified quadrant Plan Proceed with imaging and call results. 01/04/25 1519 Date Eveline Hamilton NP QA REVIEWER-C Cosigner Signature: Date (if applicable) CC: Normal [facility] Urine Cultureon 12-26-2024 URC Presumptive E. coli [place] Count 11,000-25,000 Presumptive E. coli: REACTION Ampicillin Islt ANNE <=2 Ampicillin+Sulbac Islt ANNE <=2 S Cefepime Islt ANNE <=0.12 S cefTRIAXone Islt ANNE <=0.25 S Ciprofloxacin Islt ANNE <=0.06 S B-Lactamase Extended Susc Islt NEG Gentamicin Islt ANNE <=1 S levoFLOXacin Islt ANNE <=0.12 S Meropenem Islt ANNE <=0.25 S Nitrofurantoin Islt ANNE <=16 S Pip+Tazo Islt ANNE <=4 S TMP SMX Islt ANNE <=20 S Normal [facility] Comment on above: Performed By: #### M [id number] #### [facility] [address], [address] Urine cultureOrdered By: Arie Flores on 12-24-2024 Bacteria identified Cx Nom (U) Presumptive E. coli Abnormal [facility] CNOVon 10-03-2024 CNOV Office Visit (UCWSTR) ---- CLEOPATRA BAGLEY ([id number]) 1980 F Date Time Provider Department 10/03/24 3:00 PM PROSPER LINDA [facility] During your visit today, we recorded the following information about you: Temperature Pulse Respiration Blood pressure 98.8 degrees 96/minute 16/minute 102/64 Weight 69.8 kg Prosper Linda MD 10/03/2024 3:45 PM Signed Patient presents with: Nasal Congestion: drainage, cough, headache, sore throat and fever x 1 day HPI: Feeling sick since yesterday morning. Positive symptoms: Cough, Nasal Congestion, Rhinorrhea, Fever, chills, Malaise, Headache, Body Aches, Negative symptoms: Nausea, Vomiting, Diarrhea, OTC: Ibuprofen, Tylenol MEDICATIONS: Current Outpatient Medications Medication Sig valACYclovir (VALTREX) 1 gram tab Take 2,000 mg BID for 1 day for onset of cold sore. clotrimazole (ANTIFUNGAL, CLOTRIMAZOLE,) 1 % cream Apply 1 application to affected area twice daily. (Patient not taking: Reported on 10/03/2024) No current facility-administer ed medications for this visit. ALLERGIES: ALLERGIES No Known Allergies VITALS: BP 102/64 Pulse 96 Temp 37.1 ?C (98.8 ?F) Resp 16 Wt 69.8 kg (153 lb 14.1 oz) LMP 07/30/2017 SpO2 96% BMI 25.41 kg/m? PHYSICAL EXAM: GEN: ill appearing HEENT: PERRL, EOMI, conjunctiva with trace injection Ears: canals clear. TMs without erythema, bulge, or effusion Sinuses: non-tender frontal sinus, non-tender maxillary sinuses Throat: moist mucous membranes, mild erythema, no exudate Neck: supple, no thyromegaly, no lymphadenopathy HEART: regular rate, regular rhythm, no murmurs LUNGS: clear to auscultation, no wheezes or crackles, no increased WOB ASSESSMENT/PLAN: 1. Influenza A - ICD9: 487.1, ICD10: J10.1 (primary diagnosis) 2. Influenza-like illness - ICD9: 487.1, ICD10: J11.1 3. Sore throat - ICD9: 462, ICD10: J02.9 - STREP A MOLECULAR (POC) negative - INFLUENZA AANDB MOLECULAR (POC) positive for influenza A - OSELTAMIVIR 75 MG CAPSULE - Discussed supportive care treatment with rest, cold medicine, and analgesia. Prosper Linda MD Allergies As of Date: 10/03/2024 (No Known Allergies) Date Reviewed: 10/03/2024 Reviewed by: Morenita Castillo MA - Fully Assessed Reason for Visit: Nasal Congestion [235] Cmt: drainage, cough, headache, sore throat and fever x 1 day Primary Visit Diagnosis:Influenza A [J10.1] Other Visit Diagnoses:Influenza -like illness [J11.1] Sore throat [J02.9] Order(s):STREP A MOLECULAR (POC) [0302335] Order #: [id number]. #:[id number] INFLUENZA AANDB MOLECULAR (POC) [8533619] Order #: [id number]. #:[id number] oseltamivir (TAMIFLU) 75 mg capsuleTake 1 capsule by mouth two times a day for 5 days.Disp: 10 capsuleRfl: 0 Prescriptions as of 10/04/2024 - oseltamivir (TAMIFLU) 75 mg capsule Take 1 capsule by mouth two times a day for 5 days. - valACYclovir (VALTREX) 1 gram tab Take 2,000 mg BID for 1 day for onset of cold sore. - clotrimazole (ANTIFUNGAL, CLOTRIMAZOLE,) 1 % cream Apply 1 application to affected area twice daily. Problem List As Of Date 10/03/2024 Noted Resolved Leukocytosis [D72.829] 10/10/2009 Iron Deficiency [E61.1] 10/10/2009 Secondary Thrombocytosis 10/10/2009 Lower abdominal pain [R10.30] 02/04/2013 Prescriptions ordered this encounter Disp Refills Start End OSELTAMIVIR 75 MG CAPSULE 10 c* 0 10/03/2024 10/08/2024 Route: ORAL Sig: Take 1 capsule by mouth two times a day for 5 days. Encounter Status:Closed by PROSPER LINDA on 10/03/24 Normal [facility] INFLUENZA A&B MOLECULAR (POC )on 10-03-2024 Flu A (POCT) Positive Abnormal Negative [facility] Comment on above: Location:[address], [place], [address] Interpretation and review of laboratory results Abnormal [facility] Procedural Control Valid [facility] Location:[address], [place], [place], [address] [place] [address] POINT OF CARE [facility] STREP A MOLECULAR (POC)on Procedural Control Valid [facility] Strep A (POCT) Negative Negative [facility] Measure post void residualon 08-20-2024 [address] [facility] Work Phone: [facility] Work Phone: HCG ( test) IA.rapi d Ql (U)Ordered By: Piper Durant on 07-22-2024 HCG ( test) Ql (U) Negative NEGATIVE [facility] Interpretation and review of laboratory results Normal [facility] HCG ( test) IA.rapi d Ql (U)on 07-22-2024 HCG ( test) Ql (U) Negative Normal NEGATIVE [facility] Comment on above: Performed By: #### [id number] #### SINHA PETER ([id number]) [facility] ([facility]) [address] [place] [address] [employer] Office Visit Reporton 06-29-2024 Oil 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 Office Visit Report [facility] [address] [place] [address], [address] [place] [address] OFFICE VISIT Date of Service: 06/29/24 MR#: [id number] Acct: [id number] Name: CLEOPATRA BAGLEY Rep #: [id number] : 1980 Provider: KALEB Fletcher ams Age/Sex: 43/F Location: [facility] [place] Status: Signed Intake Vital Signs 03/04/24 14:12 06/29/24 15:46 06/29/24 15:48 Height 5 ft 5 in 5 ft 5 in 5 ft 5 in Weight: 144 lb 4 oz 140 lb BMI 24.0 23.3 BP 117/77 134/89 H Intake Visit Reasons: mirena insert [employer] Tender Required: No Is patient in pain?: No Allergies omeprazole Allergy (Unknown, Verified 06/29/24 15:46) Other Medications ???Medication ???Instructions ???Recorded ???Confirmed ???Type Diltiazem 2% Lido 5% 1 unit topical BID-TID PRN anal 06/24/19 06/29/24 Rx fissure #30 grams acyclovir 400 mg tablet 400 mg PO BID PRN cold sores 06/24/19 06/29/24 History acyclovir 5 % topical cream 1 applic topical ONCE PRN cold 06/24/19 06/29/24 History (Zovirax) sores diazepam 5 mg tablet 5 mg PO DAILY PRN Anxiety #20 tabs 06/24/19 06/29/24 History Hydrocortisone 2.5%/lidocaine 5% #30 ea 05/07/24 06/29/24 Rx suppository (cmpd) (hydrocortisone 2.5%/lidocaine 5% suppository (compound)) hydrocortisone 2.5 % topical cream 1 applic MI QD-BID PRN hemorrhoids 05/07/24 06/29/24 Rx with perineal applicator #30 grams (Proctozone-HC) levonorgestrel 21 mcg/24 hr (up to 1 device intrauterine ONCE 06/29/24 06/29/24 History 8 years) 52 mg intrauterine device (Mirena) Post menopausal: No Patient : No : No PFSH PFSH Medical History (Updated 05/14/24 @ 09:53 by Lubna Stout) Contraceptive management Blood in stool Diarrhea Anal fissure Anxiety Laceration of right thumb Abdominal pain Acute appendicitis Surgical History Hx of breast augmentation Hx of tonsillectomy Hx of appendectomy Social History adopted: Yes household members: family current occupational status: employed current occupation: [employer] current occupational exposures/hazards: No pets and animals: Yes history of recent travel: No sexually active: Yes Smoking Status: Former smoker second hand exposure: No alcohol intake: current alcohol intake frequency: holidays/special occasions only substance use type: marijuana caffeine: Yes what type of physical activity do you participate in: none frequency: does not exercise seatbelt use: always do you feel safe at home: Yes additional social history: Spouse - Christopher, Children - Cyric History 3 Elective abortions Hx Para 1 Spontaneous abortions Hx # Term Pregnancies Ectopic pregnancies Hx # Pregnancies Multiple births # of living children 1 Past Pregnancies Del. Date Name GA/Weeks Outcome Route Bth Weight Gen Labor Lgth Anesthesia Del Locatn Provider FOB Unknown Cyric 2009 HPI mirena insert Details: CLEOPATRA BAGLEY is a 43 year old who presents for IUD insertion. Female Reproductive History Last Menstrual Period: 06/29/24 ROS Const Constitutional: Reports system reviewed and no additional complaints, except as documented Cardio Card: Reports system reviewed and no additional complaints, except as documented Resp Resp: Reports system reviewed and no additional complaints, except as documented GI GI: Reports system reviewed and no additional complaints, except as documented : Reports system reviewed and no additional complaints, except as documented; Denies difficulty voiding, dysuria or urinary frequency Skin Skin/Breast: Reports system reviewed and no additional complaints, except as documented Neuro Neuro: Reports system reviewed and no additional complaints, except as documented Psych Psych: Reports system reviewed and no additional complaints, except as documented Exam Const General: cooperative, healthy appearing, comfortable and no acute distress Resp Effort Inspection: normal respiratory effort, able to speak in complete sentences and symmetric chest movement GI Inspection: normal to inspection Palpation: soft External Female Exam: normal external appearance and normal appearance of the urethra Urethra: normal appearance of the urethra Speculum Exam - Vagina: normal appearance of the vagina and normal vaginal discharge Speculum Exam - Cervix: normal appearance of the cervix and nontender Bimanual Exam- Vagina Uterus: normal bimanual exam, normal palpation, uterine size normal, No tender and non-tender Bimanual Exam- Adnexa, other: normal Pelvic Support: normal Neuro General: patient alert, patient awake and patient oriented x3 Cogn (more content not included)... Normal [facility] Measure post void residualon 03-30-2024 19 by scan [facility] Work Phone: Measure post void residualOr dered By: Nanda Dee on 03-30-2024 [facility] Work Phone: Absolute lymphocyte countOrd ered By: Crissy Abrams on 09-17-2023 Lymphocytes Auto (Unsp spec) [#/Vol] 2.05 10*3/uL 0.83-4.51 [facility] Basophil percentageOrdered B y: Crissy Abrams on 09-17-2023 Basophils/100 WBC (Bld) 0.7 % 0-1 [facility] Eosinophils/100 WBC (Bld) 0.1 % 0-5 [facility] Neutrophils (Bld) [#/Vol] 5.3 10*3/uL 2.0-7.7 [facility] Neutrophils/100 WBC (Bld) 64.0 % 47-70 [facility] WBC (Bld) [#/Vol] 8.3 10*3/uL 4.4-11.0 [facility] Blood erythrocytes count (nu mber/volume)Ordered By: Crissy Abrams on 09-17-2023 RBC (Bld) [#/Vol] 4.56 10*6/uL 4.2-5.4 [facility] Blood hemoglobin measurement (mass/volume)Ordered By: Crissy Abrams on 09-17-2023 Hemoglobin (Bld) [Mass/Vol] 14.2 g/dL 12.0-15.0 [facility] Blood lymphocytes/100 leukoc ytesOrdered By: Crissy Abrams on 09-17-2023 Lymphocytes/100 WBC (Bld) 24.7 % 19-41 [facility] Blood monocytes/100 leukocyt esOrdered By: Crissy Abrams on 09-17-2023 Monocytes/100 WBC (Bld) 10.3 % 0-10 [facility] Blood platelet mean volumeOr dered By: Crissy Abrams on 09-17-2023 Platelet mean volume (Bld) [Entitic vol] 10.0 fL 6.2-12.0 [facility] Determination of erythrocyte mean corpuscular volume (MCV)Ordered By: Crissy Abrams on 09-17-2023 MCV (RBC) [Entitic vol] 89.7 fL 81-99 [facility] Erythrocyte sedimentation ra teOrdered By: Crissy Abrams on 09-17-2023 ESR (Bld) [Velocity] mm/h 0-30 [facility] Hematocrit Auto (Bld) [Volum e fraction]Ordered By: Crissy Abrams on 09-17-2023 Hematocrit (Bld) [Volume fraction] 40.9 % 37-47 [facility] Laboratory - Hematology and Cell countsOrdered By: Crissy Abrams on 09-17-2023 Erythrocyte distribution width (RBC) [Entitic vol] 39.8 fL 35.1-43.9 [facility] Erythrocyte distribution width (RBC) [Ratio] 12.1 % 11.6-14.6 [facility] Immature granulocytes/100 WBC (Bld) 0.200 % 0.0-0.9 [facility] Comment on above: IG% - Immature Granu locytes (promyelocytes, myelocytes and metamyelocytes) > 1% indicates that a LEFT SHIFT is Present. MCH (RBC) [Entitic mass] 31.1 pg 27.0-32.0 [facility] Nucleated RBC/100 WBC (Bld) [Ratio] 0 % 0-5 [facility] MCHC Auto (RBC) [Mass/Vol]Or dered By: Crissy Abrams on 09-17-2023 MCHC (RBC) [Mass/Vol] 34.7 g/dL 32-36 [facility] Platelets bldOrdered By: Lucrecia Abrams on 09-17-2023 Platelets (Bld) [#/Vol] 424 10*3/uL 150-450 [facility] Serum or plasma C reactive p rotein measurement (mass/volume)Ordered By: Crissy Abrams on 09-17-2023 CRP [Mass/Vol] mg/L 0.0-3.0 [facility] Comment on above: C-Reactive Protein ( CRP) provides useful information for thediagnosis, therapy and monitoring of inflammatory processesand associated diseases. For the evaluation of Relative Riskfor Cardiovascular Disease, a High Sensitivity CRP (HSCRP)should be ordered. Culture, urineOrdered By: Lovely Natarajan on 03-18-2023 Bacteria identified Cx Nom (U) Presumptive E. coli [facility] Vital Signs Date Time Vital Sign Value Performing Clinician Facility 04-05-2025 11:19-0400 Body mass index (BMI) [Ratio] 27.34 kg/m2 Demetrio Tellez APRN.FUND DEVELOPMENT MANAGER Work Phone: [facility] 04-05-2025 11:19-0400 Body temperature 98.1 [degF] Demetrio Tellez [employer] SUPERVISOR.FUND DEVELOPMENT MANAGER Work Phone: [facility] 04-05-2025 11:19-0400 Body weight 75.1 kg Demetrio Tellez [employer] SUPERVISOR.FUND DEVELOPMENT MANAGER Work Phone: [facility] 04-05-2025 11:19-0400 Diastolic blood pressure 80 mm[Hg] Demetrio Tellez [employer] SUPERVISOR.FUND DEVELOPMENT MANAGER Work Phone: [facility] 04-05-2025 11:19-0400 Heart rate 80 /min Demetrio Tellez [employer] SUPERVISOR.FUND DEVELOPMENT MANAGER Work Phone: [facility] 04-05-2025 11:19-0400 Respiratory rate 18 /min Demetrio Tellez [employer] SUPERVISOR.FUND DEVELOPMENT MANAGER Work Phone: [facility] 04-05-2025 11:19-0400 SaO2% (BldA) [Mass fraction] 98 % Demetrio Tellez [employer] SUPERVISOR.FUND DEVELOPMENT MANAGER Work Phone: [facility] 04-05-2025 11:19-0400 Systolic blood pressure 102 mm[Hg] Demetrio Tellez [employer] SUPERVISOR.FUND DEVELOPMENT MANAGER Work Phone: [facility] 01-22-2025 14:47-0400 Body height 165.[address] Keara Flores MD Work Phone: [facility] 01-22-2025 14:47-0400 Body mass index (BMI) [Ratio] 26.4 kg/m2 Dr. Keara Flores MD Work Phone: [facility] 01-22-2025 14:47-0400 Body temperature 97.4 [degF] Dr. Keara Flores MD Work Phone: [facility] 01-22-2025 14:47-0400 Body weight 72.[address] Keara Flores MD Work Phone: [facility] 01-22-2025 14:47-0400 Diastolic blood pressure 83 mm[Hg] Dr. Keara Flores MD Work Phone: [facility] 01-22-2025 14:47-0400 Heart rate 85 /min Dr. Keara Flores MD Work Phone: [facility] 01-22-2025 14:47-0400 Respiratory rate 17 /min Dr. Keara Flores MD Work Phone: [facility] 01-22-2025 14:47-0400 SaO2% (BldA) [Mass fraction] 97 % Dr. Keara Flores MD Work Phone: [facility] 01-22-2025 14:47-0400 Systolic blood pressure 122 mm[Hg] Dr. eKara Flores MD Work Phone: [facility] 01-04-2025 15:03-0400 Body height 165.[address] Keara Flores MD Work Phone: [facility] 01-04-2025 15:03-0400 Body mass index (BMI) [Ratio] 26.2 kg/m2 Dr. Keara Flores MD Work Phone: [facility] 01-04-2025 15:03-0400 Body weight 71.[address] Keara Flores MD Work Phone: [facility] 01-04-2025 15:03-0400 Diastolic blood pressure 81 mm[Hg] Dr. Keara Flores MD Work Phone: [facility] 01-04-2025 15:03-0400 Systolic blood pressure 124 mm[Hg] Dr. Keara Flores MD Work Phone: [facility] 10-03-2024 15:18-0500 Body mass index (BMI) [Ratio] 25.41 kg/m2 Prosper Linda MD Work Phone: [facility] 10-03-2024 15:18-0500 Body temperature 98.8 [degF] Prosper Linda MD Work Phone: [facility] 10-03-2024 15:18-0500 Body weight 69.8 kg Prosper Linda MD Work Phone: [facility] 10-03-2024 15:18-0500 Diastolic blood pressure 64 mm[Hg] Prosper Linda MD Work Phone: [facility] 10-03-2024 15:18-0500 Heart rate 96 /min Prosper Linda MD Work Phone: [facility] 10-03-2024 15:18-0500 Respiratory rate 16 /min Prosper Linda MD Work Phone: [facility] 10-03-2024 15:18-0500 SaO2% (BldA) [Mass fraction] 96 % Prosper Linda MD Work Phone: [facility] 10-03-2024 15:18-0500 Systolic blood pressure 102 mm[Hg] Prosper Linda MD Work Phone: [facility] 08-20-2024 15:30-0500 Body mass index (BMI) [Ratio] 25.76 kg/m2 Naldo Mcknight MD Work Phone: [facility] 08-20-2024 15:30-0500 Body weight 70.22 kg Naldo Mcknight MD Work Phone: [facility] 08-20-2024 15:30-0500 Diastolic blood pressure 72 mm[Hg] Naldo Mcknight MD Work Phone: 0(969)992-164291 [place] [address] 08-20-2024 15:30-0500 Heart rate 100 /min Naldo Mcknight MD Work Phone: 4(857)179-070491 [place] [address] 08-20-2024 15:30-0500 Respiratory rate 20 /min Naldo Mcknight MD Work Phone: 1(349)608-689891 [place] [address] 08-20-2024 15:30-0500 SaO2% (BldA) [Mass fraction] 100 % aNldo Mcknight MD Work Phone: 6(411)836-405591 [place] [address] 08-20-2024 15:30-0500 Systolic blood pressure 110 mm[Hg] Naldo Mcknight MD Work Phone: 6(046)131-709791 [place] [address] 07-22-2024 18:00-0500 Body temperature 97.59 [degF] Naldo Mcknight MD Work Phone: 9(866)228-995691 [place] [address] 07-22-2024 18:00-0500 Diastolic blood pressure 71 mm[Hg] Naldo Mcknight MD Work Phone: 6(650)157-585691 [place] [address] 07-22-2024 18:00-0500 Heart rate 73 /min Naldo Mcknight MD Work Phone: 0(129)555-323091 [place] [address] 07-22-2024 18:00-0500 Respiratory rate 12 /min Naldo Mcknight MD Work Phone: [facility] 07-22-2024 18:00-0500 SaO2% (BldA) [Mass fraction] 95 % Naldo Mcknight MD Work Phone: [facility] 07-22-2024 18:00-0500 Systolic blood pressure 105 mm[Hg] Naldo Mcknight MD Work Phone: [facility] 07-22-2024 12:10-0500 Body height 165.1 cm Naldo Mcknight MD Work Phone: [facility] 07-22-2024 12:10-0500 Body mass index (BMI) [Ratio] 24.1 kg/m2 Naldo Mcknight MD Work Phone: [facility] 07-22-2024 12:10-0500 Body weight 65.7 kg Naldo Mcknight MD Work Phone: [facility] 03-30-2024 13:53-0400 Body mass index (BMI) [Ratio] 23.8 kg/m2 Naldo Mcknight MD Work Phone: [facility] 03-30-2024 13:53-0400 Body weight 64.86 kg Naldo Mcknight MD Work Phone: [facility] 03-30-2024 13:53-0400 Diastolic blood pressure 68 mm[Hg] Naldo Mcknight MD Work Phone: [facility] 03-30-2024 13:53-0400 Systolic blood pressure 100 mm[Hg] Naldo Mcknight MD Work Phone: [facility] 03-26-2024 16:01-0400 Body height 165.1 cm Maria Elena Crawford DO Work Phone: [facility] 03-26-2024 16:01-0400 Body mass index (BMI) [Ratio] 23.96 kg/m2 Maria Elena Thomae DO Work Phone: [facility] 03-26-2024 16:01-0400 Body weight 65.32 kg Maria Elena Crawford DO Work Phone: [facility] 03-26-2024 16:01-0400 Diastolic blood pressure 85 mm[Hg] Maria Elena Benavidezae DO Work Phone: [facility] 03-26-2024 16:01-0400 Respiratory rate 16 /min Maria Elena Crawford DO Work Phone: [facility] 03-26-2024 16:01-0400 Systolic blood pressure 127 mm[Hg] Maria Elena Crawford DO Work Phone: [facility] Encounters Encounter Date Encounter Type Care Provider Facility Start: 04-05-2025 End: 04-05-2025 Subsequent hospital visit by physician Xr [facility] Work Phone: Radiology Comment on above: Pain of left hip [M2 5.552] Start: 04-05-2025 End: 04-05-2025 Office outpatient visit 15 minutes Demetrio Tellez APRN.FUND DEVELOPMENT MANAGER Work Phone: [facility] Comment on above: Pain of left hip (Pr imary Dx) Start: 04-05-2025 End: 04-05-2025 ambulatory KEARA FLORES Facility:[facility] Start: 01-22-2025 End: 01-22-[address] Kathy Zazueta MD -Laboratory Specimen Work Phone: Start: 01-22-2025 End: 01-22-[address] Keara Flores MD Work Phone: [facility] Work Phone: Start: 01-22-2025 End: 01-22-[address] Kathy Zazueta MD -[facility] Work Phone: Start: 01-22-2025 End: 01-22-[address] Keara Flores MD Work Phone: [facility] Work Phone: Start: 01-18-2025 End: 01-18-[address] Keara Flores MD Work Phone: [facility] Work Phone: Start: 01-18-2025 End: 01-18-2025 Patient encounter procedure Eveline Hamilton QA REVIEWER-C -[facility]patient [facility] Work Phone: Start: 01-18-2025 End: 01-18-2025 ambulatory Eveline Hamilton QA REVIEWER Facility:[facility] Start: 01-04-2025 End: 01-04-2025 Patient encounter procedure Eveline Hamilton QA REVIEWER-C -[facility] Work Phone: Start: 01-04-2025 End: 01-04-2025 ambulatory Eveline Alfonso QA REVIEWER Facility:[facility] [place] Start: 12-24-2024 End: 12-24-[address] Keara Flores MD -Laboratory Specimen Work Phone: Start: 12-24-2024 End: 12-24-2024 ambulatory Keara Flores Facility:[facility] Start: 10-03-2024 End: 10-03-2024 ambulatory KEARA FLORES Facility:[facility] Start: 10-03-2024 End: 10-03-2024 Patient encounter procedure Prosper Linda MD Work Phone: [facility] Comment on above: Influenza A (Primary Dx); Influenza-like illness; Sore throat Start: 08-20-2024 End: 08-20-2024 Postop follow up visit related to original px Naldo Mcknight MD Work Phone: [facility] Comment on above: Bacterial vaginosis (Primary Dx); POP-Q stage 2 cystocele Start: 08-20-2024 End: 08-20-2024 [facility] Start: 08-11-2024 ambulatory Inez Dunaway cility:[facility] Start: 07-27-2024 End: 07-27-2024 ambulatory [facility] Start: 07-24-2024 End: 07-24-2024 ambulatory [facility] Start: 07-22-2024 End: 07-22-2024 Subsequent hospital visit by physician Naldo Mcknight MD Work Phone: [facility] [place] Comment on above: Midline cystocele (P rimary Dx); Postoperative pain Start: 07-16-2024 ambulatory [facility] Start: 06-29-2024 End: 06-29-2024 ambulatory Irene Brady Facility:[facility] [place] Start: 04-27-2024 ambulatory Keara Flores Facility: [facility] Start: 04-27-2024 ambulatory [facility] Start: 03-30-2024 End: 03-30-2024 Office consultation new/estab patient 60 min Naldo Mcknight MD Work Phone: [facility] Comment on above: POP-Q stage 2 cystoc [place] (Primary Dx); Rectocele; OAB (overactive bladder); JENNIFER (stress urinary incontinence, female) Start: 03-30-2024 End: 03-30-2024 ambulatory [facility] Ambulatory Start: 03-26-2024 End: 03-26-[address] [facility] Ambulatory Start: 03-26-2024 End: 03-26-2024 Office outpatient new 30 minutes [facility] Work Phone: [facility] Comment on above: Rectocele (Primary D x) Start: 09-17-2023 End: 09-17-2023 ambulatory [facility] Work Phone: Start: 09-17-2023 End: 09-17-2023 Patient encounter procedure [facility]-Laboratory, Pattie Barrett [facility] Start: 03-18-2023 End: 03-18-2023 ambulatory [facility] Work Phone: Start: 03-18-2023 End: 03-18-2023 Patient encounter procedure [facility]-Labor[facility], Specimen Work Phone: Procedures Date Procedure Procedure Detail Performing Clinician Start: 04-05-2025 Radex hip unilateral with pelvis 2-3 views Demetrio Tellez APRN.CNP Work Phone: Start: 01-18-[address] Keara Flores MD Work Phone: Start: 01-18-[address] Keara snyder MD Work Phone: Start: 12-24-[address] Keara Flores MD Work Phone: Start: 10-03-2024 INFLUENZA A&B MOLECULAR (POC) Prosper Linda MD Work Phone: Start: 10-03-2024 STREP A MOLECULAR (POC) Addiefrankie Escoto APRN.FUND DEVELOPMENT MANAGER Work Phone: Start: 08-20-2024 MEASURE POST VOID RESIDUAL Naldo carrillo MD Work Phone: Start: 07-22-2024 PULSE OXIMETRY, CONTINUOUS Kavon Sun MD Work Phone: Start: 07-22-2024 Urine test visual color cmprsn meths Kavon Sun MD Work Phone: Start: 03-30-2024 MEASURE POST VOID RESIDUAL Naldo carrillo MD Work Phone: Start: 09-17-2023 Diagnostic radiography of abdomen Start: 03-18-2023 Urine culture History of appendectomy Hx of appendectom y History of augmentat ion of breast Hx of breast augmentation History of tonsillectomy Hx of tonsillect tracy Plan of Treatment Date Care Activity Detail Author Start: 2032 Zoster Vaccines (1 of 2) Zoster Vaccines (1 of 2) [facility] Start: 01-21-2029 DTaP/Tdap/Td Vaccines (3 - Td or Tdap) DTaP/Tdap/Td Vaccines (3 - Td or Tdap) [facility] Start: 01-21-2029 Urine microalbumin profile [facility] Start: 05-10-2025 Influenza vaccination Influenza Vaccine (#1) [facility] Start: 08-20-2024 End: 08-20-2024 Patient encounter procedure 08/20/2024 3:30 PM EST Office Visit [facility] [address] [place] [address] Naldo Mcknight MD [address] [phone] [facility] Start: 07-22-2024 End: 07-22-2024 Cmbnd anterpost colporraphy w/cysto Colporrhaphy Anterior and Posterior Vaginal Wall Midline cystocele 07/22/2024 2:20 PM EST [facility] Start: 05-10-2024 COVID-19 Vaccine () COVID-19 Vaccine () [facility] Start: 05-10-2024 Influenza vaccination Influenza Vaccine (#1) [facility] Start: 05-10-2023 COVID-19 Vaccine () COVID-19 Vaccine () [facility] Start: 2022 Screening for malignant neoplasm of breast [facility] Start: 08-13-2022 Screening for malignant neoplasm of cervix Cervical Cancer Screening [facility] Start: 2003 Screening for malignant neoplasm of cervix [facility] Start: 2001 Hepatitis B Vaccine (1 of 3 - 19+ 3-dose series) Hepatitis B Vaccine (1 of 3 - 19+ 3-dose series) [facility] Start: 2001 Hepatitis B Vaccines (1 of 3 - 19+ 3-dose series) Hepatitis B Vaccines (1 of 3 - 19+ 3-dose series) [facility] Start: 2001 Pneumococcal vaccination Pneumococcal Vaccine (1 of 2 - PCV) [facility] Start: 2000 Anxiety Screening Anxiety Screening [facility] Start: 2000 Depression Screening Depression Screening [facility] Start: 2000 Hepatitis C screening Hepatitis C Screening [facility] Start: 2000 HIV screening HIV Screening [facility] Start: 1995 Varicella vaccination Varicella Vaccines (1 of 2 - 13+ 2-dose series) [facility] Start: 1983 MMR Vaccines (1 of 1 - Standard series) MMR Vaccines (1 of 1 - Standard series) [facility] Start: 1982 HIV screening HIV Screening [facility] Start: 1982 Lipid panel Lipid Panel [facility] Start: 1982 Yearly Adult Physical [facility] anterpost colporraphy w/cysto Colporrhaphy Anterior and Posterior Vaginal Wall Rectocele POP-Q stage 2 cystocele [facility] [place] Immunizations Immunization Date Immunization Notes Care Provider Broderick delacruz 01-21-2019 tetanus toxoid, redu pratima diphtheria toxoid, and acellular pertussis vaccine, [facility] 08-13-2017 influenza virus vaccine, unspecified formulation Prosper Linda MD Work Phone: [facility] 09-12-2009 RHO(D) immune globul in- IV or IM Prosper Linda MD Work Phone: [facility] Payers Date Payer Category Payer Self-pay [id number] 03-26-2024 [employer] ( [employer] others) [id number] 09-09-2023 [employer] ( and others) [id number] 09-09-2023 () [employer] [id number] 09-09-2023 [employer] ( and others) [id number] 09-09-2012 Government (not [facility] care or Medicaid) [facility] [id number] 09-09-2012 Unknown [place] [id number] 09/09/2012-Present [phone] [address] [place] [address] Indemnity [id number] 09-09-2012 Self-pay [id number] 01-07-2009 [employer] ( and others) PRIME [id number] 1982 Unknown [id number] 1982 Unknown [id number] 1982 Unknown [id number] 1982 Unknown [id number] 1980 Unknown [id number] 1980 Unknown [id number] 1980 Unknown [id number] .1243 Department of [facility] ( and others) [id number] Unknown [id number] .462 Unknown [id number] .462 Unknown [id number] .462 Unknown [id number] .462 Unknown [id number] .462 Unknown [id number] .462 Unknown [id number] .462 Unknown [id number] .462 Social History Date Type Detail Facility Start: 07-10-2019 End: 07-10-2019 Tobacco smoking status NHIS Unknown if ever smoked [facility] Start: 07-10-2019 Non-smoker [facility] Start: 1980 Sex Assigned At Female W [facility] Start: 03-26-2024 Tobacco smoking stat us KSIS Never smoked tobacco [facility] Work Phone: Start: 03-26-2024 End: 10-03-2024 Tobacco use and exposure Smokeless tobacco non-user [facility] Work Phone: Start: 07-22-2024 End: 10-03-2024 Alcoholic beverage intake Current drinker of alcohol (finding) [facility] Work Phone: Start: 08-15-2020 End: 07-22-2024 Alcoholic beverage intake [facility] Work Phone: Start: 08-15-2020 End: 04-21-2024 Tobacco use panel [facility] Work Phone: Start: 1980 [facility] assigned [facility] Start: 03-16-2024 End: 08-20-2024 Exposure to SARS-CoV-2 (event) Not sure [facility] Work Phone: Start: 03-26-2024 Alcoholic beverage intake Ex-drinker (finding) [facility] Work Phone: Start: 04-09-[address] [facility] Start: 04-09-1994 End: 04-09-2009 History of tobacco use Cigarette Smoker [facility] National Score (1-100), lower number is lower risk Not on file [facility] Start: 08-13-2017 Alcohol Comment 4-6 drinks per month [facility] Start: 12-31-2024 [facility] Functional Status Date Assessment Result Facility 01-05-2014 Are you deaf, or do you have serious difficulty hearing No 01/05/2014 10:37 AM Ivonne Mejias RN No [facility] 01-05-2014 Are you blind, or do you have serious difficulty seeing, even when wearing glasses No 01/05/2014 10:37 AM Ivonne Mejias RN No [facility] 01-05-2014 Do you have serious difficulty walking or climbing stairs No 01/05/2014 10:37 AM Ivonne Mejias RN No [facility] 01-05-2014 Do you have difficul ty dressing or bathing No 01/05/2014 10:37 AM Ivonne Mejias RN No [facility] 01-05-2014 Because of a physica l, mental, or emotional condition, do you have difficulty doing errands alone such as visiting a physician's office or shopping No 01/05/2014 10:37 AM Ivonne Mejias RN No [facility] Mental Status Date Assessment Result Facility 01-05-2014 Because of a physica l, mental, or emotional condition, do you have serious difficulty concentrating, remembering, or making decisions No 01/05/2014 10:37 AM EDT Ivonne Moody RN No [facility] Clinical Notes 03-26-2024 to 04-05-2025 Jennifer Robertson RT(R) - 04/05/2025 11:40 AM EDTPDemetrio betts APRN.FUND DEVELOPMENT MANAGER - 04/05/2025 11:21 AM EDT Note Date & Type Note Facility 04-05-2025 History of Present illness Narrative Radiology Service Progress Note PATIENT NAME: Cleopatra Bagley DATE OF SERVICE: April 05, 2025 TIME: 11:37 AM PATIENT IDENTITY VERIFICATION COMPLETED USING TWO (2) IDENTIFIERS: Name and Date of confirmed by patient verbally. FALL SCREENING: Has the patient had 2 falls in the last year or 1 fall with injury or currently using an Ambulatory Assistive Device (Walker, Cane, Wheelchair, Crutches, etc.)? No PATIENT GENDER DATA: Assigned female at . status: : No status: NO. PATIENT RELEVANT IMPLANT DATA REVIEWED: Yes PATIENT PRESENTS WITH AN IMPLANTABLE OR ATTACHED STONE DERRICKMAN AND RIGGER: No RADIOLOGY DEPARTMENT: General X-ray: Exam(s) Completed: Pelvis X-Ray: Pelvis with Hip Left PERIPHERAL IV DATA: Not applicable SIGNED BY: RT Estelle(R) April 05, 2025 11:37 AM documented in this encounter [facility] 04-05-2025 Note HNO ID: [id number] Author: JENNIFER ROBERTSON RT(R) Service: ? 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 FALL SCREENING: Has the patient had 2 falls in the last year or 1 fall with injury or currently using an Ambulatory Assistive Device (Walker, Cane, Wheelchair, Crutches, etc.)? No PATIENT GENDER DATA: Assigned female at . status: : No status: NO. PATIENT RELEVANT IMPLANT DATA REVIEWED: Yes PATIENT PRESENTS WITH AN IMPLANTABLE OR ATTACHED STONE DERRICKMAN AND RIGGER: No RADIOLOGY DEPARTMENT: General X-ray: Exam(s) Completed: Pelvis X-Ray: Pelvis with Hip Left PERIPHERAL IV DATA: Not applicable SIGNED BY: RT Estelle(R) April 05, 2025 11:37 AM [facility] 04-05-2025 Note HNO ID: [id number] Author: DEMETRIO TELLEZ APRN.FUND DEVELOPMENT MANAGER Service: ? Author Type: Nurse Practitioner Type: Progress Notes Filed: 04/05/2025 11:54 Note Text: URGENT CARE YULIANA Bagley is a 44 year old female. Patient presents with: Pain: Left hip pain x 1 day HPI Nontoxic-appearing female presents urgent care chief complaint of left hip pain. Duration of symptoms has been present for around 2 weeks however last night when she pivoted her foot to get out of the shower she felt a pain in her left hip. States pain is worse today. Rates pain 3 out of 10 with sitting increased pain with ambulation. 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 Denies any specific injury. Denies any numbness or tingling. No leg weakness. No fevers. No rashes. No swelling. Past medical history prescription medications allergies reviewed. Denies chance of Review of Systems Constitutional: Negative for activity change, diaphoresis, fatigue and fever. Musculoskeletal: Positive for gait problem. Negative for arthralgias, back pain, joint swelling, myalgias, neck pain and neck stiffness. Skin: Negative for pallor, rash and wound. Neurological: Negative for dizziness, seizures, syncope, weakness, light-headedness, numbness and headaches. Psychiatric/Behavioral: Negative for confusion. Objective BP 102/80 Pulse 80 Temp 36.7 ?C (98.1 ?F) Resp 18 Wt 75.1 kg (165 lb 9.1 oz) LMP 07/30/2017 SpO2 98% BMI 27.34 kg/m? Physical Exam Constitutional: Appearance: Normal appearance. She is normal weight. HENT: Head: Normocephalic. Eyes: Conjunctiva/sclera: Conjunctivae normal. Cardiovascular: Rate and Rhythm: Normal rate. Pulmonary: Effort: Pulmonary effort is normal. Musculoskeletal: Cervical back: Normal range of motion. Left hip: Tenderness present. No deformity, lacerations or bony tenderness. Normal range of motion. Normal strength. Left upper leg: Normal. Comments: Pain with FADIR and RACHAEL. No erythema edema noted. No point tenderness. Skin: Findings: No rash. Neurological: General: No focal deficit present. Mental Status: She is alert and oriented to person, place, and time. Mental status is at baseline. IMPRESSION: No radiographic evidence of acute osseous injury. {ASSESSMENT/PLAN: 1. Pain of left hip - ICD9: 719.45, ICD10: M25.552 - XR HIP GENERAL 3V PELV/AP/LAT LEFT Diagnosed with left hip pain. Labral tear versus osteoarthritis. X-ray unremarkable. Suspicious of labral tear. Patient was educated on supportive therapies. Patient will follow up with primary care provider as needed. Patient was instructed to immediately proceed to emergency room for any new, worsening, or symptoms lasting longer than anticipated. The patient's clinical presentation is otherwise unremarkable at this time. Based on exam and clinical finding, the patient is stable for discharge. Plan of care was discussed with patient. Patient verbalizes understanding and agrees to plan of care. This note was generated using PhatNoise software. It may contain errors in wording, punctuation, or spelling. Demetrio Tellez APRN.FUND DEVELOPMENT MANAGER [facility] Procedures [facility] 04-05-2025 History of Present illness Narrative URGENT CARE YULIAAN Bagley is a 44 year old female. Patient presents with: Pain: Left hip pain x 1 day HPI Nontoxic-appearing female presents urgent care chief complaint of left hip pain. Duration of symptoms has been present for around 2 weeks however last night when she pivoted her foot to get out of the shower she felt a pain in her left hip. States pain is worse today. Rates pain 3 out of 10 with sitting increased pain with ambulation. 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 Denies any specific injury. Denies any numbness or tingling. No leg weakness. No fevers. No rashes. No swelling. Past medical history prescription medications allergies reviewed. Denies chance of Review of Systems Constitutional: Negative for activity change, diaphoresis, fatigue and fever. Musculoskeletal: Positive for gait problem. Negative for arthralgias, back pain, joint swelling, myalgias, neck pain and neck stiffness. Skin: Negative for pallor, rash and wound. Neurological: Negative for dizziness, seizures, syncope, weakness, light-headedness, numbness and headaches. Psychiatric/Behavioral: Negative for confusion. Objective BP 102/80 Pulse 80 Temp 36.7 C (98.1 F) Resp 18 Wt 75.1 kg (165 lb 9.1 oz) LMP 07/30/2017 SpO2 98% BMI 27.34 kg/m Physical Exam Constitutional: Appearance: Normal appearance. She is normal weight. HENT: Head: Normocephalic. Eyes: Conjunctiva/sclera: Conjunctivae normal. Cardiovascular: Rate and Rhythm: Normal rate. Pulmonary: Effort: Pulmonary effort is normal. Musculoskeletal: Cervical back: Normal range of motion. Left hip: Tenderness present. No deformity, lacerations or bony tenderness. Normal range of motion. Normal strength. Left upper leg: Normal. Comments: Pain with FADIR and RACHAEL. No erythema edema noted. No point tenderness. Skin: Findings: No rash. Neurological: General: No focal deficit present. Mental Status: She is alert and oriented to person, place, and time. Mental status is at baseline. IMPRESSION: No radiographic evidence of acute osseous injury. {ASSESSMENT/PLAN: 1. Pain of left hip - ICD9: 719.45, ICD10: M25.552 - XR HIP GENERAL 3V PELV/AP/LAT LEFT Diagnosed with left hip pain. Labral tear versus osteoarthritis. X-ray unremarkable. Suspicious of labral tear. Patient was educated on supportive therapies. Patient will follow up with primary care provider as needed. Patient was instructed to immediately proceed to emergency room for any new, worsening, or symptoms lasting longer than anticipated. The patient's clinical presentation is otherwise unremarkable at this time. Based on exam and clinical finding, the patient is stable for discharge. Plan of care was discussed with patient. Patient verbalizes understanding and agrees to plan of care. This note was generated using PhatNoise software. It may contain errors in wording, punctuation, or spelling. Demetrio Tellez APRN.FUND DEVELOPMENT MANAGER [facility] Procedures documented in this encounter [facility] 01-18-2025 Radiology Diagnostic study note [facility] Imaging Services [address] [place], [place] [address] Breast Limited Unilateral MR#: [id number] Acct: [id number] Name: CLEOPATRA BAGLEY Rep #: [id number] : 1980 F 44 From: Tim Vargas DO PCP: Dr. Keara Flores MD Status: REG CLI Study:Breast Limited Unilateral Date of Exam: 01/18/25 Exam# [id number] Ordering Dr: Eveline Hamilton NP QA REVIEWER-C PROCEDURE: BREAST LIMITED UNILATERAL 01/18/2025 REASON FOR EXAM: RIGHT BREAST MASS Palpable mass right breast. Inconclusive mammogram shows 3 masses in the right breast. 1 of which does correlate to the palpable abnormality. Further workup with ultrasound will be performed. TECHNIQUE: Targeted left breast ultrasound. COMPARISON: Mammogram dated 01/18/2025 FINDINGS: Left breast ultrasound was targeted to the masses seen on the mammogram study aswell as the palpable abnormality.. There is a benign-appearing cyst identified in the retroareolar region of the right breast correlating to a mass on the mammogram. This cyst is located at the retroareolar region measuring 2.4 x 2.3 x 1.5 cm. Aspiration is recommended. There are 2 solid hypoechoic lobulated masses seen in the right breast. These do correlate to masses seen on the mammogram. 1 of which does correlate to the palpable abnormality. The masses do have blood flow. The masses do not appear to be highly worrisome for malignancy however malignancy can not be entirely excluded. Biopsy of both masses is warranted. US/Breast Limited Unilateral IMPRESSION: Impression: The 2 solid masses in the right breast warrant biopsy in order to completely exclude a malignancy. The cyst should be aspirated. Birads: BI-RADS 4: SUSPICIOUS ABNORMALITY. Reading Location: [id number] CC: QA REVIEWER-C Eveline Hamilton; Dr. Keara Flores MD ~ Resort Housekeeper: Signed [facility] 01-04-2025 Evaluation note Diagnosis Onset Date Resolution Breast mass, right acute January 04, 2025 2:59pm [facility] Work Phone: 1(887) 472-623204-28-2025 Evaluation note* Diagnosis Onset Date Resolution Status Admit Date Breast mass, right acute January 04, 2025 2:59pm Breast mass, right acute January 222024 2:30pm [facility] Work Phone: 1(699) 209-419901-25-2025 NoteHNO ID: [id number] Author: PROSPER LINDA MD Service: ? Author Type: Physician Type: Progress Notes Filed: 10/03/2024 15:45 Note Text: Patient presents with: Nasal Congestion: drainage, cough, headache, sore throat and fever x 1 day HPI: Feeling sick since yesterday morning. Positive symptoms: Cough, Nasal Congestion, Rhinorrhea, Fever, chills, Malaise, Headache, Body Aches, Negative symptoms: Nausea, Vomiting, Diarrhea, OTC: Ibuprofen, Tylenol MEDICATIONS: Current Outpatient Medications Medication Sig valACYclovir (VALTREX) 1 gram tab Take 2,000 mg BID for 1 day for onset of cold sore. clotrimazole (ANTIFUNGAL, CLOTRIMAZOLE,) 1 % cream Apply 1 application to affected area twice daily. (Patient not taking: Reported on 10/03/2024) No current facility-administered medications for this visit. ALLERGIES: ALLERGIES No Known Allergies VITALS: BP 102/64 Pulse 96 Temp 37.1 ?C (98.8 ?F) Resp 16 Wt 69.8 kg (153 lb 14.1 oz) LMP 07/30/2017 SpO2 96% BMI 25.41 kg/m? PHYSICAL EXAM: GEN: ill appearing HEENT: PERRL, EOMI, conjunctiva with trace injection Ears: canals clear. TMs without erythema, bulge, or effusion Sinuses: non-tender frontal sinus, non-tender maxillary sinuses Throat: moist mucous membranes, mild erythema, no exudate Neck: supple, no thyromegaly, no lymphadenopathy HEART: regular rate, regular rhythm, no murmurs LUNGS: clear to auscultation, no wheezes or crackles, no increased WOB ASSESSMENT/PLAN: 1. Influenza A - ICD9: 487.1, ICD10: J10.1 (primary diagnosis) 2. Influenza-like illness - ICD9: 487.1, ICD10: J11.1 3. Sore throat - ICD9: 462, ICD10: J02.9 - STREP A MOLECULAR (POC) negative - INFLUENZA AANDB MOLECULAR (POC) positive for influenza A - OSELTAMIVIR 75 MG CAPSULE - Discussed supportive care treatment with rest, cold medicine, and analgesia. Prosper Linda, [facility]01-25-2025 History of Present illness Narrative* Prosper Linda MD - 10/03/2024 3:21 PM EST Patient presents with: Nasal Congestion: drainage, cough, headache, sore throat and fever x 1 day HPI: Feeling sick since yesterday morning. Positive symptoms: Cough, Nasal Congestion, Rhinorrhea, Fever, chills, Malaise, Headache, Body Aches, Negative symptoms: Nausea, Vomiting, Diarrhea, OTC: Ibuprofen, Tylenol MEDICATIONS: Current Outpatient Medications Medication Sig valACYclovir (VALTREX) 1 gram tab Take 2,000 mg BID for 1 day for onset of cold sore. clotrimazole (ANTIFUNGAL, CLOTRIMAZOLE,) 1 % cream Apply 1 application to affected area twice daily. (Patient not taking: Reported on 10/03/2024) No current facility-administered medications for this visit. ALLERGIES: ALLERGIES No Known Allergies VITALS: BP 102/64 Pulse 96 Temp 37.1 C (98.8 F) Resp 16 Wt 69.8 kg (153 lb 14.1 oz) [facility] 07/30/2017 SpO2 96% BMI 25.41 kg/m PHYSICAL EXAM: GEN: ill appearing HEENT: PERRL, EOMI, conjunctiva with trace injection Ears: canals clear. TMs without erythema, bulge, or effusion Sinuses: non-tender frontal sinus, non-tender maxillary sinuses Throat: moist mucous membranes, mild erythema, no exudate Neck: supple, no thyromegaly, no lymphadenopathy HEART: regular rate, regular rhythm, no murmurs LUNGS: clear to auscultation, no wheezes or crackles, no increased WOB ASSESSMENT/PLAN: 1. Influenza A - ICD9: 487.1, ICD10: J10.1 (primary diagnosis) 2. Influenza-like illness - ICD9: 487.1, ICD10: J11.1 3. Sore throat - ICD9: 462, ICD10: J02.9 - STREP A MOLECULAR (POC) negative - INFLUENZA A&B MOLECULAR (POC) positive for influenza A - OSELTAMIVIR 75 MG CAPSULE - Discussed supportive care treatment with rest, cold medicine, and analgesia. Prosper Linda [facility] History of Present illness Narrative* Naldo Mcknight MD - 08/20/2024 3:30 PM EST POST OPERATIVE VISIT The patient is a 43 y.o. female who presents for a postoperative follow up visit. She underwent SSLF hysterpexy, A/P repair on 07/22/24 and is now 1 month(s) post-op. Pathology: n/a INTERVAL HISTORY: Doing well overall, still a bit of a twinge in certain positions Prolapse symptoms: No Urinary Incontinence symptoms: Stress incontinence: No Urgency: No Frequency: No Urge incontinence: No Voiding dysfunction symptoms: No Defecatory symptoms: No Fecal Incontinence: No Pain: see above PHYSICAL EXAM: There were no vitals taken for this visit. PVR (by ultrasound): 55 ml General Appearance: well developed, good nutrition, well groomed, no deformities, normal habitus Head: normocephalic, and atraumatic Neck: symmetric, midline trachea, full range of motion Respiratory: no dyspnea, negative for intercostal retraction or uses of accessory muscles of respiration Cardiovascular: peripheral pulses are normal, no swelling, edema or varicosities Abdomen: Abdomen soft, non-tender, non-distended. Pelvic: GASOLINE ENGINE ASSEMBLER: negative External genitalia: normal appearance, normal Bartholin's glands and [place]'s glands Urethra: normal meatus, non-tender, no periurethral mass Vaginal mucosa: normal, no granulation tissue, no strictures, incisions well-healing Cervix normal Uterus normal size, nontender Adnexae negative, nontender, no mass Atrophy No POP-Q (in supine position): No significant prolapse Impression/plan: 43 y.o. female with history of POP who underwent SSLF hysterpexy, A/P repair on 07/22/24. She is doing well postoperatively. - She is healing normally - Preoperative symptoms resolved - Continue activity restrictions: no heavy lifting, pelvic rest x 2 weeks - Return in 1 year(s) BV - malodorous discharge present on exam, c/w BV - rx sent for flagyl 1 week course - advised to call back in 2 weeks if not improved Naldo Mcknight MD documented in this [facility] Work Phone: 1(274) 297-201611-13-2024 Note* Perioperative Nursing Note - Esmer Newberry RN - 07/22/2024 6:17 PM EST Patient was not able to void after instilling 300ml of sterile water into her bladder. 16 Chinese armando cath reinserted and Dr. Mcknight notified. Patient instructed to call the office tomorrow. [facility]11-13-2024 Miscellaneous Notes* Perioperative Nursing Note - Esmer Newberry RN - 07/22/2024 6:17 PM EST Patient was not able to void after instilling 300ml of sterile water into her bladder. 16 Chinese armando cath reinserted and Dr. Mcknight notified. Patient instructed to call the office tomorrow. * Op Note - Naldo Mcknight MD - 07/22/2024 2:34 PM EST Date: 07/22/2024 OR Location: [facility] OR Name: Cleopatra BagleyDOB: 1980, Age: 43 y.o., , Sex: female Diagnosis Pre-op Diagnosis * Midline cystocele [N81.11] Post-op Diagnosis * Midline cystocele [N81.11] Procedures Colporrhaphy Anterior and Posterior Vaginal Wall 07201 - [place] CMBND ANTERPOST COLPORRAPHY W/CYSTO Surgeons * Naldo Mcknight - Primary Resident/Fellow/Other Support Team Assoc: Surgeons and Role: * No surgeons found with a matching role * Staff: Chair Pad Maker: Bettie Scrub Person: Jaleel Scrub Person: Kerline Scrub Person: Lokesh Stevens Chair Pad Maker: Bushra Anesthesia Staff: Anesthesiologist: Kavon Sun MD Procedure Summary Anesthesia: General ASA: I Estimated Blood Loss: 50 mL Intra-op Medications: Administrations occurring from 1320 to 1440 on 07/22/24: Medication Name Total Dose fentaNYL (Sublimaze) injection 50 mcg/mL 100 mcg lidocaine PF (Xylocaine-MPF) 1 % 3 mL propofol (Diprivan) injection 10 mg/mL 100 mg ceFAZolin (Ancef) 2 g in dextrose (iso) IV 100 mL 2 g midazolam (Versed) injection 2 mg 2 mg Anesthesia Record Intraprocedure I/O Totals None Specimen: No specimens collected Procedure Details: The patient was seen in the preoperative area. The site of surgery was properly noted/marked if necessary per policy. The patient has been actively warmed in preoperative area. Preoperative antibiotics have been ordered and given within 1 hours of incision. Venous thrombosis prophylaxis have been ordered including bilateral sequential compression devices Preoperative diagnosis: Stage 2 uterovaginal prolapse Postoperative diagnosis: Stage 2 uterovaginal prolapse Procedure: Sacrospinous ligament fixation hysteropexy Anterior repair Cystoscopy Posterior repair and perineorrhaphy Attending surgeon: Naldo Mcknight MD Anesthesia: GETA Specimen: none Complications: None apparent Findings: Uterus: small, mobile Adnexae: unremarkable With traction, vaginal support of the following structures with respect to the hymen was: Cervix: 0 cm Cystoscopy: Ureteral patency: demonstrated Bladder integrity: no evidence of injury Indication: Symptomatic uterovaginal prolapse Desires surgical management Narrative: General anesthetic was administered and the patient was placed in the dorsal lithotomy position in [facility] stirrups and prepped and draped in the normal sterile fashion. Sacrospinous ligament suspension: A horizontal incision posterior to the cervix was marked out with Allis clamps ensuring that they reach to the sacrospinous ligament. Vasopressin was injected along the incision line, and the incision was made with scalpel. The pararectal space between the peritoneum and posterior vaginal wall was developed with blunt dissection without difficulty. Blunt dissection was used to open the adventitial tissues near the ischial spine. The sacrospinous ligament was clearly palpated. Two passes of a Capio ligature were placedthrough the right sacrospinous ligament. Each Capio suture was then attached to a loop of #1 PDS and pulled through the ligament to establish four strands in the ligament. The PDS sutures in the sacrospinous ligament were placed through the vaginal apex. The sutures weretied with approximation of the vaginal cuff to the sacrospinous ligament. Cystoscopy was performed with findings as described above. Anterior repair: The anterior vaginal wall was placed on traction and then divided in the midline. The pubocervical fascia was then dissected free from the vaginal epithelium. The pubocervical fascia was then plicated in the midline with interrupted 3-0 PDS The vaginal epithelium was then trimmed and reapproximated with 3-0 Vicryl. Cystoscopy was performed with findings as described above. Posterior repair: A posterior repair was performed by excising a triangular-shaped wedge of posterior vaginal wall after infiltration of vasopressin. The rectovaginal fascia was reapproximated with interrupted 2-0 PDSsutures and the bulbocavernosus muscles were reapproximated with 2-0 PDS suture. The vaginal epithelium was reapproximated with a 2-0 Vicryl in a running fashion. A rectal exam was done, demonstrating normal rectum without any evidence of injury or transgression of sutures. The Armando catheter was left to drain. The patient tolerated the procedures well. Sponge, instrumentand needle counts were correct. The patient was awakened from general anesthesia and brought to therecovery room. I was present and scrubbed for the entire procedure and performed all smith aspects of the procedure myself. Naldo Mcknight MD Findings: see above Complications: None; patient tolerated the procedure well. Disposition: PACU - hemodynamically stable. Condition: stable documented in this [facility] Work Phone: 1(248) 638-947611-13-2024 Note* Op Note - Naldo Mcknight MD - 07/22/2024 2:34 PM EST Date: 07/22/2024 OR Location: [facility] OR Name: Cleopatra DO KevynB: 1980, Age: 43 y.o., , Sex: female Diagnosis Pre-op Diagnosis * Midline cystocele [N81.11] Post-op Diagnosis * Midline cystocele [N81.11] Procedures Colporrhaphy Anterior and Posterior Vaginal Wall [address] - [place] CMBND ANTERPOST COLPORRAPHY W/CYSTO Surgeons * Naldo Mcknight - Primary Resident/Fellow/Other Support Team Assoc: Surgeons and Role: * No surgeons found with a matching role * Staff: Chair Pad Maker: Bettie Scrub Person: Jaleel Scrub Person: Kerline Scrub Person: Lokesh Stevens Chair Pad Maker: Bushra Anesthesia Staff: Anesthesiologist: Kavon Sun MD Procedure Summary Anesthesia: General ASA: I Estimated Blood Loss: 50 mL Intra-op Medications: Administrations occurring from 1320 to 1440 on 07/22/24: Medication Name Total Dose fentaNYL (Sublimaze) injection 50 mcg/mL 100 mcg lidocaine PF (Xylocaine-MPF) 1 % 3 mL propofol (Diprivan) injection 10 mg/mL 100 mg ceFAZolin (Ancef) 2 g in dextrose (iso) IV 100 mL 2 g midazolam (Versed) injection 2 mg 2 mg Anesthesia Record Intraprocedure I/O Totals None Specimen: No specimens collected Procedure Details: The patient was seen in the preoperative area. The site of surgery was properly noted/marked if necessary per policy. The patient has been actively warmed in preoperative area. Preoperative antibiotics have been ordered and given within 1 hours of incision. Venous thrombosis prophylaxis have been ordered including bilateral sequential compression devices Preoperative diagnosis: Stage 2 uterovaginal prolapse Postoperative diagnosis: Stage 2 uterovaginal prolapse Procedure: Sacrospinous ligament fixation hysteropexy Anterior repair Cystoscopy Posterior repair and perineorrhaphy Attending surgeon: Naldo Mcknight MD Anesthesia: GETA Specimen: none Complications: None apparent Findings: Uterus: small, mobile Adnexae: unremarkable With traction, vaginal support of the following structures with respect to the hymen was: Cervix: 0 cm Cystoscopy: Ureteral patency: demonstrated Bladder integrity: no evidence of injury Indication: Symptomatic uterovaginal prolapse Desires surgical management Narrative: General anesthetic was administered and the patient was placed in the dorsal lithotomy position in [facility] stirrups and prepped and draped in the normal sterile fashion. Sacrospinous ligament suspension: A horizontal incision posterior to the cervix was marked out with Allis clamps ensuring that they reach to the sacrospinous ligament. Vasopressin was injected along the incision line, and the incision was made with scalpel. The pararectal space between the peritoneum and posterior vaginal wall was developed with blunt dissection without difficulty. Blunt dissection was used to open the adventitial tissues near the ischial spine. The sacrospinous ligament was clearly palpated. Two passes of a Capio ligature were placedthrough the right sacrospinous ligament. Each Capio suture was then attached to a loop of #1 PDS and pulled through the ligament to establish four strands in the ligament. The PDS sutures in the sacrospinous ligament were placed through the vaginal apex. The sutures weretied with approximation of the vaginal cuff to the sacrospinous ligament. Cystoscopy was performed with findings as described above. Anterior repair: The anterior vaginal wall was placed on traction and then divided in the midline. The pubocervical fascia was then dissected free from the vaginal epithelium. The pubocervical fascia was then plicated in the midline with interrupted 3-0 PDS The vaginal epithelium was then trimmed and reapproximated with 3-0 Vicryl. Cystoscopy was performed with findings as described above. Posterior repair: A posterior repair was performed by excising a triangular-shaped wedge of posterior vaginal wall after infiltration of vasopressin. The rectovaginal fascia was reapproximated with interrupted 2-0 PDSsutures and the bulbocavernosus muscles were reapproximated with 2-0 PDS suture. The vaginal epithelium was reapproximated with a 2-0 Vicryl in a running fashion. A rectal exam was done, demonstrating normal rectum without any evidence of injury or transgression of sutures. The Armando catheter was left to drain. The patient tolerated the procedures well. Sponge, instrumentand needle counts were correct. The patient was awakened from general anesthesia and brought to therecovery room. I was present and scrubbed for the entire procedure and performed all smith aspects of the procedure myself. Naldo Mcknight MD Findings: see above Complications: None; patient tolerated the procedure well. Disposition: PACU - hemodynamically stable. Condition: stable [facility] Work Phone: [phone]) 718-138011-13-2024 Hospital Discharge instructions* Discharge Instructions* Naldo Mcknight MD - 07/22/2024 2:19 PM EST Images from the original note were not included. UROGYNECOLOGY POST-OPERATIVE INSTRUCTIONS GENERAL: It is recommended that a responsible adult stay with you for 24 hours after receiving anesthesia. Do not make any important decisions, sign any important documents, or drive for about 24 hours. FOOD: You can eat your normal regular food. There are no restrictions. ACTIVITY 1. You may feel tired and weak because your body is focusing on healing and recovering from anesthesia. 2. We encourage you to walk. You will get tired quickly so take breaks when you need to. Then get up and move around again. It is important NOT to lie in bed all day. Being active throughout the recovery process is the best way to speed up your healing and avoid complications. 3. You can go outside the house. 4. You can go up and down the stairs. 5. You can shower. PAIN: You can use over the counter tylenol and/or ibuprofen for pain as needed If your pain is not well controlled with these options, call the office for further guidance. CONSTIPATION: Avoiding constipation is smith after surgery! 1) Take 1 capful of Miralax daily 2) If you have not moved your bowels within 48 hours or 2 days of surgery, increase frequency of Miralax to twice a day 3) The goal is to have toothpaste consistency stools. You can decrease the amount of Miralax if youare having diarrhea. 4) If you have not had a bowel movement 5 days after surgery, call Dr. Mcknight's office. WOUND CARE: 1. If you had vaginal surgery, you will have light vaginal bleeding or discharge that will go on for 6 weeks or possibly longer. You will need a light pad. If you have heavy bleeding (enough to fullysoak a pad in an hour or less), call Dr. Mcknight's office. You may also notice some clots passing particularly if you just got up from being in bed or sitting for a while - this is normal! 2. You may shower daily, no special soaps or cleansing agents. 3. Dr. Mcknight may ask you to insert estrogen cream in the vagina using an applicator. This is safeand will not hurt you in any way. Sometimes it can stir up a little bleeding, but it is generally not heavy. CATHETER CARE (if you go home with a catheter): 1. Simply empty the bag every 3-4 hours. 2. You can shower and let the catheter get wet, pat it dry with a towel. 3. Dr. Mcknight's office will call you to schedule an appointment for catheter removal. If you have not heard from them within 1-2 business days, call the office. REASONS TO CALL US 1. If you have a fever (temperature more than 100.3 degrees). Please check your temperature prior to calling. 2. If your pain is not controlled after taking the medications as recommended above. 3. If you are vomiting and unable to hold down food or liquid. 4. If you are unable to urinate despite having an urge to do so. Similarly, if you have a catheter in place and have a strong urge to urinate but are not seeing urine draining into the bag, give us acall. 5. If you are unable to have a bowel movement despite following the recommendations listed above. If you ever feel that something isn't right or you have concerns, please don't hesitate to call theoffice! HOW TO REACH US: [place] patients: , option #2 then option #3 [place] patients: , option #2 then option #3 [place] patients: documented in this [facility] Work Phone: [phone]) 695-970111-13-2024 History and physical note* Naldo Mcknight MD - 07/22/2024 2:15 PM EST History Of Present Illness Cleopatra Bagley is a 43 y.o. female presenting with POP. Past Medical History She has a past medical history of Anxiety. Surgical History She has a past surgical history that includes Breast surgery (Bilateral) and Appendectomy. OB History OB History No obstetric history on file. Sexual History Social History Substance and Sexual Activity Sexual Activity Defer Social History She reports that she has never smoked. She has never used smokeless tobacco. She reports current alcohol use of about 5.0 standard drinks of alcohol per week. She reports current drug use. Drug: Marijuana. Family History Family History Problem Relation Name Age of Onset No Known Problems Mother No Known Problems Father Allergies Patient has no known allergies. Physical Exam Gen: no acute distress ENT: neck supple, mucous membranes moist Pulm: normal respiratory effort Abd: abdomen soft, non-tender Neuro: alert and oriented MSK: full ROM Ext: no significant edema Psych: appropriate affect Last Recorded Vitals BP 108/80 Pulse 64 Temp 36.4 C (97.6 F) (Temporal) Resp 16 Ht 1.651 m (5' 5) Wt 65.7 kg (144 lb 13.5 oz) SpO2 98% No BMI 24.10 kg/m Assessment/Plan Assessment & Plan Midline cystocele Cleopatra Bagley is a 43 y.o. who presents with POP, desires surgical management. Plan is for anterior and posterior repair, possible sacrospinous ligament fixation hysteropexy, cystoscopy. Naldo Mcknight MD [facility] Work Phone: [phone]) 946-338811-13-2024 History and physical note* Naldo Mcknight MD - 07/22/2024 2:15 PM EST History Of Present Illness Cleopatra Bagley is a 43 y.o. female presenting with POP. Past Medical History She has a past medical history of Anxiety. Surgical History She has a past surgical history that includes Breast surgery (Bilateral) and Appendectomy. OB History OB History No obstetric history on file. Sexual History Social History Substance and Sexual Activity Sexual Activity Defer Social History She reports that she has never smoked. She has never used smokeless tobacco. She reports current alcohol use of about 5.0 standard drinks of alcohol per week. She reports current drug use. Drug: Marijuana. Family History Family History Problem Relation Name Age of Onset No Known Problems Mother No Known Problems Father Allergies Patient has no known allergies. Physical Exam Gen: no acute distress ENT: neck supple, mucous membranes moist Pulm: normal respiratory effort Abd: abdomen soft, non-tender Neuro: alert and oriented MSK: full ROM Ext: no significant edema Psych: appropriate affect Last Recorded Vitals BP 108/80 Pulse 64 Temp 36.4 C (97.6 F) (Temporal) Resp 16 Ht 1.651 m (5' 5) Wt 65.7 kg (144 lb 13.5 oz) SpO2 98% No BMI 24.10 kg/m Assessment/Plan Assessment & Plan Midline cystocele Cleopatra Bagley is a 43 y.o. who presents with POP, desires surgical management. Plan is for anterior and posterior repair, possible sacrospinous ligament fixation hysteropexy, cystoscopy. Naldo Mcknight MD documented in this [facility] Work Phone: 1(853) 377-835907-22-2024 History of Present illness Narrative* Naldo Mcknight MD - 03/30/2024 2:00 PM EDT Referred by: Dr. Crawford PCP Keara Flores MD CHIEF COMPLAINT: rectocele HISTORY OF PRESENT ILLNESS: This is a 43 y.o. y.o. female who presents with possible rectocele. For past 2 years, has difficulty fully passing BM. Would have to push with her hand to pass. Presses on perineum and with this pressure able to pass BM. Stools are generally looser but stool consistency doesn't impact this issue. Initially brought up to PCP. Bit of a bulge to the opening of the vagina. The following were reviewed to gain additional history: External notes: Dr. Crawford note 03/26/24, rectocele noted by chemical lab supervisor, patient reporting splinting with BMs Test results: n/a Specifically, she describes the following pelvic floor symptoms: Prolapse: Yes - Splinting to urinate: No - Splinting for bowel movement/stool trapping: Yes Incontinence: Yes Mixed Urinary Symptoms: - Frequency: No # Voids: - Nocturia: No # Voids: 0-1 - Urgency: Yes - Incomplete emptying: Yes - more recently - Hesitancy: Yes - recently - Pain with voiding: No - Excessive fluid intake: No History: - Recurrent UTI: No - Hematuria: No - Stones: No - Kidney Disease: No Bowel Symptoms: - Regular: Yes - Diarrhea:No - Constipation: No, Ty recommended benefiber but hasn't started yet - Fecal Incontinence: No - Flatus Incontinence: No, one episode last week with very loose stool - Fecal urgency: No Past medical and surgical hx reviewed - pertinent for no PMH PSH: appendectomy Smoking history: smoked for 20 years until 6 years ago 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 Unclear, unaware she had a tear until 1-2 days after delivery - Number of prior c-sections: 0 - Mammogram up to date: N/A - Colonoscopy up to date: Yes OB History No obstetric history on file. PHYSICAL EXAMINATION: No LMP recorded. There is no height or weight on file to calculate BMI. There were no vitals taken for this visit. 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 who presents with stage 2 POP (anterior and posterior, with splinting for BM), OAB, JENNIFER. POP - reviewed risk factors, natural history and etiology of prolapse - discussed management options for prolapse including expectant management, PFPT, pessary fitting, and surgery - opting for surgery - reviewed based on her exam would recommend vaginal approach and A/P repair without apical suspension - Counseled on risk of postoperative urinary retention requiring temporary indwelling catheter upondischarge from hospital - Reviewed postoperative restrictions: no lifting over 10 pounds for 6 weeks, pelvic rest for 6 weeks, and no driving for first 1-2 weeks - Reviewed plan for same-day surgery without overnight stay - Will need urodynamics prior to surgery? No (declines sling for her rare JENNIFER, see below) - Will need PCP/specialist clearance? No - Surgical plan: A/P repair, cystoscopy, location: Orthodoxy OAB - discussed etiology of OAB and potential management options - reviewed bladder health recommendations (fluid intake, avoiding bladder triggers) - discussed treatment options: PFPT, medications, PTNS, intradetrusor botox, SNM - opting for start with prolapse repair as above, consider medication in the future if still bothersome JENNIFER - discussed etiology of JENNIFER and potential risk factors - reviewed management strategies including PFPT, anti-incontinence ring, urethral bulking injections and midurethral sling placement - opting for expectant management - declines sling at time of A/P repair as this is not bothersome to her All questions and concerns were answered and addressed. The patient expressed understanding and agrees with the plan. 03/30/2024 Follow up for surgery as above Naldo Mcknight MD documented in this [facility] Work Phone: [phone]) 475-209607-18-2024 History of Present illness Narrative* Maria Elena Crawford DO - 03/26/2024 3:45 PM EDT Subjective Patient ID: Cleopatra Bagley is a 43 y.o. female who presents for New Patient Visit (Referral from Crissy Abrams CNP at [facility] for LLQ pain x several years with bloating, gas, and feeling of incomplete evacuation of feces when having a BM. Patient reports BM are usually in pieces and very soft. ). ETTA Rader is a new patient seen today at request of her family doctor. She has had issues with incomplete evacuation of bowel movement. States she has to insert her fingers in her vaginal vault andpushed backwards to fully evacuate stool. This been going on for approximately 3 years and worsening over the last 18 months. She did see her chemical lab supervisor was told that she had a rectocele but was given no real information. She admits she has had 1 and had a very difficult experience she was induced and had significant tearing with grade 4 PCI to me she believes down to rectal muscle. She denies any rectal bleeding. Did have colonoscopy approximately 6 years ago was told she had a benign growth and has had no rectal bleeding since that time. She admits her bowel movements are loose semiformed and she is having difficulty sensing when she has to have a bowel movement. She denies any incontinence. Review of Systems Constitutional: Negative. HENT: Negative. Eyes: Negative. Respiratory: Negative. Cardiovascular: Negative. Endocrine: Negative. Genitourinary: Negative. Neurological: Negative. Hematological: Negative. Objective Physical Exam Vitals and nursing note reviewed. Constitutional: Appearance: Normal appearance. HENT: Head: Normocephalic. Mouth/Throat: Mouth: Mucous membranes are moist. Pharynx: Oropharynx is clear. Eyes: Conjunctiva/sclera: Conjunctivae normal. Pupils: Pupils are equal, round, and reactive to light. Cardiovascular: Pulses: Normal pulses. Heart sounds: Normal heart sounds. Pulmonary: Effort: Pulmonary effort is normal. Breath sounds: Normal breath sounds. Abdominal: General: Abdomen is flat. Bowel sounds are normal. Palpations: Abdomen is soft. Musculoskeletal: General: Normal range of motion. Cervical back: Normal range of motion and neck supple. Skin: General: Skin is warm and dry. Neurological: General: No focal deficit present. Mental Status: She is alert and oriented to person, place, and time. Psychiatric: Behavior: Behavior normal. Assessment/Plan Diagnoses and all orders for this visit: Rectocele Given her [place] scale 2 bowel movements advised to begin Benefiber 1 tablespoon or 2 wafers daily. Referred for evaluation with urogynecology with Dr. Guardado. Will obtain copy of most recent colonoscopy and see her back in 3 months Maria Elena Crawford DO 03/26/24 4:47 PM [facility] Work Phone: Evaluation noteNo assessment information available [facility] Work Phone: Evaluation note* Diagnosis Midline cystocele- Primary Cystocele, midline Midline cystocele Cystocele, midline Postoperative pain Other acute postoperative pain documented in this encounter [facility] Work Phone: Evaluation note* Diagnosis Rectocele- Primary documented in this encounter [facility] Work Phone: Evaluation note* Diagnosis POP-Q stage 2 cystocele- Primary Rectocele OAB (overactive bladder) JENNIFER (stress urinary incontinence, female) documented in this encounter [facility] Work Phone: Evaluation note* Diagnosis Bacterial vaginosis- Primary Unspecified vaginitis and vulvovaginitis POP-Q stage 2 cystocele documented in this encounter [facility] Work Phone: Evaluation note* Diagnosis Influenza A- Primary Influenza with other respiratory manifestations Influenza-like illness Influenza with other respiratory manifestations Sore throat Acute ph[facility]itis [facility] Pain of left hip- Primary Pain of left hip [facility]* Diagnosis Pain of left hip [facility] (n[facility]ative)No reason for referral information availableWWVUMedicine [facility] Work Phone: Reason for visit Narrative* Auth/Cert Specialty Diagnoses / Procedures Referred By Mamta al Referred To Contact Diagnoses Midline cystocele Midline cystocele [N81.11] Procedures [place] CMBND ANTERPOST COLPORRAPHY W/CYSTO Colporrhaphy Anterior and Posterior Vaginal Wall Naldo Mcknight MD [address] [address] Phone: tel: fax: [facility] [place] [address] [place] [phone] fax: Referral ID Status Reason Start Date Expiration Date Visits Re quested Visits Authorized [id number] 1 1 [facility] Work Phone: Reason for visit Narrative* Diagnostic Procedure Only (Urgent) - Pending Review Specialty Diagnoses / Procedures Referred By Mamta al Referred To Contact XR IMAGING Diagnoses Pain of left hip Procedures XR HIP GENERAL 3V PELV/AP/LAT LEFT RADEX HIP UNILATERAL WITH PELVIS 2-3 VIEWS Demetrio Tellez APRN.FUND DEVELOPMENT MANAGER [address] [place] [address] Phone: tel: fax: [place] [address] Referral ID Status Reason Start Date Expiration Date Visits Requested Visits Authorized [id number] Pending Review Auto-Generate d Referral Clearance Not Met -Financial Clearance Bypassed or Pt Declined to Pay 04/05/2025 05/05/2026 1 1 [facility] Advance Directives Advance Directive Response Recorded Date/ Time Living Will No July 10 2:44pm Power of Office Nurse No July 10, 2019 2:44pm Advance Directive Response Recorded Date/ Time Living Will No July 10 1:44pm Power of Office Nurse No July 10, 2019 1:44pm Date Activated Date Inactivated Comments 07/22/2024 12:06 PM Question Answer Comments Plan of Care: Code Status Discussion Not Compl eted Decision Maker: Provider Rationale: Patient condition does not warra nt discussion Date Activated Date Inactivated Comments 07/22/2024 12:06 PM Question Answer Comments Plan of Care: Code Status Discussion Not Compl eted Decision Maker: Provider Rationale: Patient condition does not warra nt discussion Summary Purpose Family History No Family History Records Found Chief Complaint and Reason for Visit Chief Complaint Admit Date painful R breast lump *copay $37 December 092024 2:59pm RIGHT BREAST MASS January 18, 2025 1:37p m Reason for Visit Admit Date Breast mass, right January 04, 2025 2:5 9pm Chief Complaint Admit Date painful R breast lump *copay $37 December 092024 2:59pm RIGHT BREAST MASS January 18, 2025 1:37p m BIRADS 4 January 22, 2025 2:30p m Reason for Visit Admit Date Breast mass, right January 04, 2025 2:5 9pm Breast mass, right January 22, 2025 2:30p m Additional Source Comments Care Teams (unrecognized sec tion and content) Team Status: Active Member Role Status Dates Dr. Keara Flores MD Family Provider Active Dr. Luz Maria Natarajan DO Primary Care Provider Active Team Status: Inactive Member Role Status Dates Dr. Luz Maria Natarajan DO Primary Care Provide r, Attending Provider, Referring Provider Active Team Status: Active Member Role Status Dates Dr. Keara Flores MD Family Provider Active JOSH Zamora Primary Care Provider Active Team Status: Inactive Member Role Status Dates JOSH Zamora Primary Care Provider, Attending Lauren brizuela Active Chain Carrier Relationship Specialty Start Date End Date Keara Flores MD [address] [place] [phone] PCP - General Family Medicine 03/26/24 Chain Carrier Relationship Specialty Start Date End Date Keara Flores MD [address] [phone] PCP - General Family Medicine 03/26/24 Chain Carrier Relationship Specialty Start Date End Date Keara Flores MD [address] [phone] PCP - General Family Medicine 03/26/24 Chain Carrier Relationship Specialty Start Date End Date Keara Flores MD [address] [place] [phone] PCP - General Family Medicine 03/26/24 Chain Carrier Relationship Specialty Start Date End Date Keara Flores MD [address] [place], [place] [phone] PCP - General Family Medicine 06/12/19 Team Status: Active Member Role Status Dates Dr. Keara Flores MD Primary Care Provider Active Team Status: Inactive Member Role Status Dates Dr. Keara Flores MD Primary Care Provider Active Start: December 24, 2024 End: December 24, 2024 Dr. Keara Flores MD Attending Provider Active Start: December 24, 2024 End: December 24, 2024 Team Status: Inactive Member Role Status Dates Dr. Keara Flores MD Primary Care Provider Active Start: January 04, 2025 End: January 04, 2025 Dr. Keara Flores MD Referring Provider Active Start: January 04, 2025 End: January 04, 2025 Eveline Hamilton QA REVIEWER, QA REVIEWER-C Attending Provider Active Start: January 04, 2025 End: January 04, 2025 Team Status: Inactive Member Role Status Dates Dr. Keara Flores MD Primary Care Provider Active Start: January 18, 2025 End: January 18, 2025 Eveline Hamilton QA REVIEWER, QA REVIEWER-C Attending Provider Active Start: January 18, 2025 End: January 18, 2025 Eveline Hamilton QA REVIEWER, QA REVIEWER-C Referring Provider Active Start: January 18, 2025 End: January 18, 2025 Team Status: Inactive Member Role Status Dates Dr. Keara Flores MD Primary Care Provider Active Start: January 22, 2025 End: January 22, 2025 Dr. Keara Flores MD Referring Provider Active Start: January 22, 2025 End: January 22, 2025 Dr. Kathy Zazueta MD Attending Provider Active Start: January 22, 2025 End: January 22, 2025 Team Status: Inactive Member Role Status Dates Dr. Keara Flores MD Primary Care Provider Active Start: January 22, 2025 End: January 22, 2025 Dr. Kathy Zazueta MD Attending Provider Active Start: January 22, 2025 End: January 22, 2025 Chain Carrier Relationship Specialty Start Date End Date Keara Flores MD [address] [place] [phone] PCP - General Family Medicine 06/12/19 Chain Carrier Relationship Specialty Start Date End Date Keara Flores MD [address] [place] [phone] PCP - General Family Medicine 06/12/19 Goals (unrecognized section and content) Goals may be documented in a n alternate sectionGoals may be documented in an alternate sectionGoals may be documented in an alternate sectionGoals may be documented in an alternate sectionGoals may be documented in an alternate section INFORMATION SOURCE (unrecogn ized section and content) DATE CREATED AUTHOR 04/01/2024 [facility] DATE CREATED AUTHOR AUTHOR'S ORGANIZ ATION 08/23/2024 [facility] DATE CREATED AUTHOR AUTHOR'S ORGANIZ ATION 04/01/2025 [facility] DATE CREATED AUTHOR AUTHOR'S ORGANIZ ATION 04/06/2025 [facility] Scheduled Active and Recently Administ ered Medications (unrecognized section and content) Medication Order 07/20/2024 07/21/2024 07/22/2024 acetaminophen (Tylenol) tablet 975 mg (COMPLETED) 975 mg, oral, Once, On Sat07/22/24 at 1230, For 1 dose, Preprocedure, If ordered PRN for pain, nurse is permitted to administer this medication for higher pain scores based on patient preference? Yes 1233 (Given - Provid er: Tiny Canales RN) ceFAZolin (Ancef) 2 g in dextrose (iso) IV 100 mL (COMPLETED) 2 g, intravenous, Administer over 30 Minutes, Once, On Sat07/22/24 at 1230, For 1 dose, Preprocedure, Administer within 60 minutes prior to incision. premix bag, Dosing of this medication varies based on severity of illness. Does this patient have sepsis or concern for sepsis (probable or documented infection plus systemic manifestations of infection)? No, Suspected Indication (Select all that apply): Surgical Prophylaxis, Indications: Surgical Prophylaxis 1416 (New Bag - Prov ider: Tiny Canales RN)1653 (Stopped - Provider: Esmer Newberry RN) gabapentin (Neurontin) capsule 600 mg (COMPLETED) 600 mg, oral, Once, On Sat07/22/24 at 1230, For 1 dose, Preprocedure, Capsules may be opened and sprinkled on food (eg, applesauce, orange juice, pudding). Capsules may be opened and sprinkled on food (eg, applesauce, orange juice, pudding 1234 (Given - Provid er: Tiny Canales RN) ondansetron (Zofran) injection 4 mg (COMPLETED) 4 mg, intravenous, Once, On Sat07/22/24 at 1300, For 1 dose, Preprocedure, When administering via IV Push, administer over 3-5 minutes. 1249 (Given - Provid er: Tiny Canales RN) phenazopyridine (Pyridium) tablet 200 mg (COMPLETED) 200 mg, oral, Once, On Sat07/22/24 at 1230, For 1 dose, Preprocedure, May discolor urine (orange). 1234 (Given - Provid er: Tiny Canales RN) Continuous Medication Order 07/20/2024 07/21/2024 07/22/2024 lactated Ringer's infusion 100 mL/hr, intravenous, Continuous, Starting on Sat07/22/24 at 1300, For 1 day, Preprocedure 1225 (New Bag - Prov ider: Tiny Canales RN)1653 (New Bag - Provider: Esmer Newberry RN) lactated Ringer's infusion 100 mL/hr, intravenous, Continuous, Starting on Sat07/22/24 at 1645, For 1 day, Recovery (only) 1645 (Due) PRN Medication Order 07/20/2024 07/21/2024 07/22/2024 HYDROmorphone (Dilaudid) injection 0.5 mg 0.5 mg, intravenous, Every 5 min PRN, pain mild (1-3), first line, Starting on Sat07/22/24 at 1619, Recovery (only), Max total of 4 mg regardless of dose. HYDROmorphone (Dilaudid) injection 0.5 mg 0.5 mg, intravenous, Every 5 min PRN, pain moderate (4-6), first line, Starting on Sat07/22/24 at 1619, Recovery (only), Max total of 4 mg regardless of dose. HYDROmorphone (Dilaudid) injection 0.5 mg 0.5 mg, intravenous, Every 5 min PRN, pain severe (7-10), first line, Starting on Sat07/22/24 at 1619, Recovery (only), Max total of 4 mg regardless of dose. 1623 (Given - Provid er: Esmer Newberry, RN)1628 (Given - Provider: Esmer Newberry RN - Comment: Used 1 mg/1ml would no)1637 (Given - Provider: Esmer Newberry RN - Comment: 1mg/1ml concentratioin used)1648 (Given - Provider: Esmer Newberry RN - Comment: using 1mg/1ml concentration will not scan)1657 (Given - Provider: Esmer Newberry RN - Comment: using 1mg/1ml concentration will not scan) midazolam (Versed) injection 2 mg (COMPLETED) 2 mg, intravenous, Once as needed, anxiety, Starting on Sat07/22/24 at 1239, For 1 dose, Preprocedure 1414 (Given - Provid er: Tiny Canales RN) ondansetron (Zofran) injection 4 mg (COMPLETED) 4 mg, intravenous, Once as needed, nausea/vomiting, first line, Starting on Sat07/22/24 at 1619, For 1 dose, Recovery (only), When administering via IV Push, administer over 3-5 minutes. 1744 (Given - Provid er: Esmer Newberry RN) oxygen (O2) therapy inhalation, Continuous PRN - O2/gases, other, Starting on Sat07/22/24 at 1619, Recovery (only), Device: Nasal Cannula, Rate in liters per minute: Other, Custom Value: 1-6 LPM, Keep O2 Sat Above: 92% promethazine (Phenergan) 12.5 mg in sodium chloride 0.9% 50 mL IV 12.5 mg, intravenous, Administer over 15 Minutes, Once as needed, nausea/vomiting, first line, Nausea/vomiting, second line, Starting on Sat07/22/24 at 1619, For 1 dose, Recovery (only) vasopressin (Vasostrict) 20 Units in sodium chloride (PF) 0.9% 50 mL mixture (CANCELED) As needed, Starting on Sat07/22/24 at 1548, Intraprocedure 1548 (Given - Provid er: Naldo Mcknight MD - Comment: VAGINA) Reason for Visit (unrecogniz ed section and content) Reason Comments New Patient Visit Referral from Crissy Abrams CNP at [facility] for LLQ pain x several years with bloating, gas, and feeling of incomplete evacuation of feces when having a BM. Patient reports BM are usually in pieces and very soft. Reason Comments prolapse Specialty Diagnoses / Procedures Referred By Contac t Referred To Contact Obstetrics and Gynecology Diagnoses Rectocele Maria Elena Crawford, DO [address] [facility] [place] [address] Naldo Mcknight MD [address] [place] [address] Referral ID Status Reason Start Date Expiration Date Visits Requested Visits Authorized [id number] Authorized Specialty Services Required 03/27/2024 03/27/2025 1 1 Reason Comments Post-op Visit Reason Comments Nasal Congestion drainage, cough, hea dache, sore throat and fever x 1 day Reason Comments Pain Left hip pain x 1 da y Source Comments (unrecognize d section and content) In the event this informatio n is protected by the Federal Confidentiality of Alcohol and Drug Abuse Patient Records regulations: The Federal rules restrict any use of the information to criminally investigate or prosecute any alcohol or drug abuse patient.[facility] the event this information is protected by the Federal Confidentiality of Alcohol and Drug Abuse Patient Records regulations: The Federal rules restrict any use of the information to criminally investigate or prosecute any alcohol or drug abuse patient.[facility] the event this information is protected by the Federal Confidentiality of Alcohol and Drug Abuse Patient Records regulations: The Federal rules restrict any use of the information to criminally investigate or prosecute any alcohol or drug abuse patient.[facility] FOR RECORDS PERTAINING TO PATIENTS WHO ARE [...] BE BASED ON THE PRIMARY CLINICAL RECORDS. [facility]. provides no warranty or guarantee of the accuracy or completeness of information in this document.
== END | disposition home or self-care (01) ==
LOC: OPUS 13:21
PROVIDERS: PCP Family Medicine; Referring Provider Surgery; Visit Provider Surgery
DX: N63.15 Unspecified lump in the right breast, overlapping quadrants (principal)
CPT/HCPCS: 76642